=== PATIENT | male | born 1950 | race Caucasian/White ===

== ENCOUNTER → 2017-08-15 | Outpatient (CLI) | payer OTHER ==
[~2017-08-15] MED LIST: 0.92SYRI2 IV; FERR325T18 PO; FISHCAP4 PO; GABA300C5 PO; HEPA100I8 IV; LIDO1CRE31 TOPICAL; MAGN400T2 PO; METO25TA3 PO; MULT400T PO; OYST250T4 PO
== END ==
LOC: CLAB 13:59
PROVIDERS: ATTEND Internal Medicine
DX: E83.52 Hypercalcemia (principal)
CPT/HCPCS: 36415; 84132

== ENCOUNTER 2017-11-05 11:58 | Inpatient (IN) | payer MEDICARE, OTHER ==
[~2017-11-05] VITALS: Ht 191.8 cm; Wt 160.0 kg
[2017-11-05 12:25] VITALS: BP 106/65; PULSE 91; RESP 22; TEMP 98.2; O2SAT 100
[2017-11-05 13:22] LABS: AUTOMATED NEUTROPHIL # 13.5 TH/MM3 (1.8-7.7); BASOPHIL # 0.1 TH/MM3 (0-0.2); BASOPHIL % 0.7 % (0.0-2.0); EOSINOPHIL # 0.4 TH/MM3 (0-0.4); EOSINOPHIL % 2.2 % (0.0-4.0); HEMATOCRIT 25.3 % (39.0-51.0); HEMOGLOBIN 7.9 GM/DL (13.0-17.0); LYMPH % 7.7 % (9.0-44.0); LYMPHOCYTE # 1.3 TH/MM3 (1.0-4.8); MEAN CELL VOLUME 91.6 FL (80.0-100.0); MEAN CORPUSCULAR HEMOGLOBIN 28.7 PG (27.0-34.0); MEAN CORPUSCULAR HGB CONC 31.4 % (32.0-36.0); MEAN PLATELET VOLUME 6.7 FL (7.0-11.0); MONO % 6.7 % (0.0-8.0); MONOCYTE # 1.1 TH/MM3 (0-0.9); NEUT % 82.7 % (16.0-70.0); PLATELET COUNT 427 TH/MM3 (150-450); RED BLOOD COUNT 2.76 MIL/MM3 (4.50-5.90); RED CELL DISTRIBUTION WIDTH 14.6 % (11.6-17.2); WHITE BLOOD COUNT 16.3 TH/MM3 (4.0-11.0)
[2017-11-05 13:30] LABS: BACTERIA, URINE RARE /hpf; BILIRUBIN, URINE NEG (NEG); BLOOD, URINE SMALL (NEG); GLUCOSE,URINE NEG (NEG); HYALINE CAST, URINE 41 /lpf (RARE); KETONE, URINE NEG (NEG); MUCUS URINE FEW /lpf (OCC); NITRITE,URINE NEG (NEG); PH, URINE 5.5 (5.0-8.5); SQUAMOUS EPITHELIAL CELL URINE 1 /hpf (0-5); URINE COLOR YELLOW (YELLW/STRAW); URINE LEUKOCYTE ESTERASE TRACE (NEG)
--- NOTE | 2017-11-05 13:30 | RADRPT ---
EXAM DATE/TIME: 11/05/2017 13:21 [place] COMPARISON: CHEST PA & LAT, June 26, 2016, 22:56. INDICATIONS : Short of breath x 10 days. MEDICAL HISTORY : atrial fibrillation SURGICAL HISTORY : scrotal cancer surgery 2017 ENCOUNTER: Initial ACUITY: 1 week PAIN SCORE: 0/10 LOCATION: Bilateral chest FINDINGS: There is an [id number] in place in the right chest the catheter is in good position. The heart is normal in size. The mediastinal contours are within normal limits. The lungs are clear. The bony structures are grossly intact. There is a convex right rotatory scoliosis. CONCLUSION: 1. No acute cardiopulmonary findings. Jim Frank MD on November 05, 2017 at 13:28 Board Certified Radiologist. This report was verified electronically.
[2017-11-05 13:44] LABS: ALBUMIN 2.7 GM/DL (3.4-5.0); ALKALINE PHOSPHATASE 143 U/L (45-117); ALT (GPT) 25 U/L (12-78); AST (GOT) 19 U/L (15-37); BICARBONATE 16.9 MEQ/L (21.0-32.0); BLOOD UREA NITROGEN 46 MG/DL (7-18); CALCIUM 9.5 MG/DL (8.5-10.1); CHLORIDE 110 MEQ/L (98-107); CREATININE 3.08 MG/DL (0.60-1.30); GLOMERULAR FILTRATION RATE 20 ML/MIN (>89); GLUCOSE,RANDOM 102 MG/DL (74-106); MAGNESIUM 1.3 MG/DL (1.5-2.5); SODIUM (NA) 134 MEQ/L (136-145); TOTAL BILIRUBIN ADULT 0.2 MG/DL (0.2-1.0); TOTAL PROTEIN 9.1 GM/DL (6.4-8.2)
--- NOTE | 2017-11-05 14:40 | PD ---
HPI Chief Complaint: Respiratory Symptoms Time Seen by Provider: 14:16 Travel History International Travel<30 days: No Contact w/Intl Traveler<30days: No Traveled to known affect area: No History of Present Illness HPI The patient is a 67-year-old -[place] male who presents to the emergency department for shortness of breath of 3 weeks duration. The patient notes increasing shortness of breath for the last 3 weeks which is worse with exertion, alleviated at rest. He denies any chest pain or new cough. The patient has a recent history of testicular cancer, underwent removal of both testicles at the [facility] in May 2017. He was then diagnosed with a blood clot in the right lower extremity and was placed on Pradaxa. He also has a history of A. fib with RVR for which he takes Multaq. The patient apparently had recent blood work which revealed an elevated potassium level, however, no follow-up tests were performed. He now complains of increasing shortness of breath and had labs in triage which noted a potassium of 6.9 without any evidence of hemolysis. He denies any PRISCILLA inhibitors ARB use, denies any known history of kidney disorders. He does note mild dehiscence of the surgical wounds in the scrotum which have been evaluated by his physicians at the [facility]. Symptoms are moderate, worse with exertion, and slightly alleviated at rest. He denies any known history of congestive heart failure or cardiomyopathy. PFSH Past Medical History Arthritis: Yes Asthma: Yes (1975) Heart Rhythm Problems: Yes (TACHYCARDIA) Cancer: Yes (SCROTAL SMALL CELL SQUAMOUS) Cardiovascular Problems: Yes Chemotherapy: Yes Diabetes: Yes (Pre DIABETIC) Diminished Hearing: No Endocrine: Yes Genitourinary: No Immune Disorder: No Musculoskeletal: Yes Neurologic: No Psychiatric: No Reproductive: Yes Respiratory: Yes Sleep Apnea: Yes (controlled) Past Surgical History Other Surgery: Yes (WOUND DEBRIDED BUTTOCKS, SWEAT GLANDS REMOVED) Social History Alcohol Use: Yes (RARELY) Tobacco Use: No Substance Use: No Allergies-Medications (Allergen,Severity, Reaction): Coded Allergies: No Known Allergies (Verified Adverse Reaction, Unknown, 11/05/17) Reported Meds & Prescriptions Reported Meds & Active Scripts Active Reported Tylenol (Acetaminophen) 325 Mg Tab 650 Mg PO Q6H PRN [place] (Hydrocodone-Acetaminophen) 7.5-325 mg Tab 1 Tab PO Q4H PRN Heparin Lock Flush For Flush (Heparin Sodium (Porcine) Lock Flush) 500 Unit/5 Ml (100 Unit/Ml) Inj 100 Units IV MONTHLY Normal Saline Flush (Sodium Chloride Flush) 0.9 % Inj 5 Ml IV MONTHLY Fish Oil + D3 (Fish Oil-Cholecalciferol) 1,200-1,000 Mg-Unit Cap 1 Cap PO DAILY Lidopril Topical (Lidocaine-Prilocaine Topical) 2.5-2.5 % Cream 1 Applic TOPICAL 1 HR PRIORACCESSPORT PRN Metoprolol Tartrate 25 Mg Tab 25 Mg PO BID Magnesium Oxide 400 Mg Tab 400 Mg PO TID Gabapentin 300 Mg Cap 300 Mg PO HS Ferrous Sulfate 325 Mg (65 Mg Iron) Tablet 325 Mg PO DAILY Oyster Shell Calcium/Vitamin D (Calcium Carbonate-Cholecalciferol) 250-125 Mg- Unit Tab 2 Tab PO BID Multaq (Dronedarone) 400 Mg Tab 400 Mg PO BID Review of Systems Except as stated in HPI: all other systems reviewed are Neg General / Constitutional: No: Fever HENT: No: Lightheadedness Cardiovascular: Positive: Dyspnea on exertion, No: Chest Pain or Discomfort Respiratory: Positive: Shortness of Breath Gastrointestinal: No: Nausea, Vomiting, Abdominal Pain Genitourinary: No: Decreased Urinary Output Musculoskeletal: Positive: Edema Neurologic: No: Dizziness Physical Exam Narrative GENERAL: Awake, alert, 67-year-old female who appears her stated age and is in no acute respiratory distress. SKIN: Focused skin assessment warm/dry. HEAD: Atraumatic. Normocephalic. EYES: No injection or drainage. ENT: No nasal bleeding or discharge. Mucous membranes pink and moist. NECK: Trachea midline. No JVD. Well-healed scars in the posterior aspect of the neck. CARDIOVASCULAR: Regular rate and rhythm. No murmur appreciated. Heart rate in the 90s. RESPIRATORY: No accessory muscle use. Clear to auscultation. Breath sounds equal bilaterally. GASTROINTESTINAL: Abdomen soft, obese, no rebound tenderness. Genitourinary: Circumcised phallus. Old appearing to his demand at the base of the penis w with small amount of yellow drainage, however, the wound otherwise appears clean. MUSCULOSKELETAL: No obvious deformities. No clubbing. No cyanosis. No edema. NEUROLOGICAL: Awake and alert. No obvious cranial nerve deficits. Motor grossly within normal limits. Normal speech. Nonfocal. PSYCHIATRIC: Appropriate mood and affect; insight and judgment normal. Data Data Last Documented VS Vital Signs Date Time Temp Pulse Resp B/P (MAP) Pulse Ox O2 Delivery O2 Flow Rate FiO2 11/05/17 15:00 18 98 Room Air 11/05/17 15:00 85 128/59 (82) 11/05/17 12:25 98.2 Orders Orders Complete Blood Count With Diff (11/05/17 12:28) Comprehensive Metabolic Panel (11/05/17 12:28) B-Type Natriuretic Peptide (11/05/17 12:28) Magnesium (Mg) (11/05/17 12:28) Electrocardiogram (11/05/17 12:28) Chest, Pa & Lat (11/05/17 12:28) Urinalysis - C+S If Indicated (11/05/17 12:29) Basic Metabolic Panel (Bmp) (11/05/17 14:27) Troponin I (11/05/17 14:50) Creatine Kinase (Cpk) (11/05/17 14:50) Potassium, Serum (K) (11/05/17 19:44) Ecg Monitoring (11/05/17 16:44) Oximetry (11/05/17 16:44) Calcium Gluconate Inj (Calcium Gluconate (11/05/17 16:45) Insulin Human Regular Inj (Novolin R Inj (11/05/17 17:00) Dextrose 50% In Alec (Vial) Inj (D50w (Vi (11/05/17 16:45) Sodium Bicarbonate 8.4% Inj (Sodium Bica (11/05/17 16:45) Sodium Chlor 0.9% 1000 Ml Inj (Ns 1000 M (11/05/17 16:45) Albuterol Neb (Albuterol Neb) (11/05/17 16:45) Admit Order (Ed Use Only) (11/05/17 16:52) Labs Laboratory Tests Test 11/05/17 13:10 11/05/17 13:11 11/05/17 15:55 Urine Color YELLOW Urine Turbidity CLEAR Urine pH 5.5 Urine Specific [place] 1.017 Urine Protein 100 mg/dL Urine Glucose (UA) NEG mg/dL Urine Ketones NEG mg/dL Urine Occult Blood SMALL Urine Nitrite NEG Urine Bilirubin NEG Urine Urobilinogen LESS THAN 2.0 MG/DL Urine Leukocyte Esterase TRACE Urine RBC 6 /hpf Urine WBC 1 /hpf Urine Squamous Epithelial Cells 1 /hpf Urine Bacteria RARE /hpf Urine Hyaline Casts 41 /lpf Urine Mucus FEW /lpf Microscopic Urinalysis Comment CULT NOT INDICATED White Blood Count 16.3 TH/MM3 Red Blood Count 2.76 MIL/MM3 Hemoglobin 7.9 GM/DL Hematocrit 25.3 % Mean Corpuscular Volume 91.6 FL Mean Corpuscular Hemoglobin 28.7 PG Mean Corpuscular Hemoglobin Concent 31.4 % Red Cell Distribution Width 14.6 % Platelet Count 427 TH/MM3 Mean Platelet Volume 6.7 FL Neutrophils (%) (Auto) 82.7 % Lymphocytes (%) (Auto) 7.7 % Monocytes (%) (Auto) 6.7 % Eosinophils (%) (Auto) 2.2 % Basophils (%) (Auto) 0.7 % Neutrophils # (Auto) 13.5 TH/MM3 Lymphocytes # (Auto) 1.3 TH/MM3 Monocytes # (Auto) 1.1 TH/MM3 Eosinophils # (Auto) 0.4 TH/MM3 Basophils # (Auto) 0.1 TH/MM3 CBC Comment DIFF FINAL Differential Comment Blood Urea Nitrogen 46 MG/DL 50 MG/DL Creatinine 3.08 MG/DL 2.89 MG/DL Random Glucose 102 MG/DL 74 MG/DL Total Protein 9.1 GM/DL Albumin 2.7 GM/DL Calcium Level 9.5 MG/DL 9.1 MG/DL Magnesium Level 1.3 MG/DL Alkaline Phosphatase 143 U/L Aspartate Amino Transf (AST/SGOT) 19 U/L Alanine Aminotransferase (ALT/SGPT) 25 U/L Total Bilirubin 0.2 MG/DL Sodium Level 134 MEQ/L 133 MEQ/L Potassium Level 6.9 MEQ/L 7.2 MEQ/L Chloride Level 110 MEQ/L 109 MEQ/L Carbon Dioxide Level 16.9 MEQ/L 16.9 MEQ/L Anion Gap 7 MEQ/L 7 MEQ/L Estimat Glomerular Filtration Rate 20 ML/MIN 22 ML/MIN B-Type Natriuretic Peptide 16 PG/ML Total Creatine Kinase 52 U/L Troponin I LESS THAN 0.02 NG/ML [facility] Medical Decision Making Medical Screen Exam Complete: Yes Emergency Medical Condition: Yes Medical Record Reviewed: Yes Interpretation(s) EKG reveals sinus rhythm with a rate of 91. Questionable peak T waves in V3 and V4. Last Impressions Chest X-Ray 11/05/17 1228 Signed Impressions: Service Date/Time: Sunday, November 05, 2017 13:21 - CONCLUSION: 1. No acute cardiopulmonary findings. Jim Frank MD Laboratory Tests Test 11/05/17 13:10 11/05/17 13:11 11/05/17 15:55 Urine Color YELLOW Urine Turbidity CLEAR Urine pH 5.5 Urine Specific [place] 1.017 Urine Protein 100 mg/dL Urine Glucose (UA) NEG mg/dL Urine Ketones NEG mg/dL Urine Occult Blood SMALL Urine Nitrite NEG Urine Bilirubin NEG Urine Urobilinogen LESS THAN 2.0 MG/DL Urine Leukocyte Esterase TRACE Urine RBC 6 /hpf Urine WBC 1 /hpf Urine Squamous Epithelial Cells 1 /hpf Urine Bacteria RARE /hpf Urine Hyaline Casts 41 /lpf Urine Mucus FEW /lpf Microscopic Urinalysis Comment CULT NOT INDICATED White Blood Count 16.3 TH/MM3 Red Blood Count 2.76 MIL/MM3 Hemoglobin 7.9 GM/DL Hematocrit 25.3 % Mean Corpuscular Volume 91.6 FL Mean Corpuscular Hemoglobin 28.7 PG Mean Corpuscular Hemoglobin Concent 31.4 % Red Cell Distribution Width 14.6 % Platelet Count 427 TH/MM3 Mean Platelet Volume 6.7 FL Neutrophils (%) (Auto) 82.7 % Lymphocytes (%) (Auto) 7.7 % Monocytes (%) (Auto) 6.7 % Eosinophils (%) (Auto) 2.2 % Basophils (%) (Auto) 0.7 % Neutrophils # (Auto) 13.5 TH/MM3 Lymphocytes # (Auto) 1.3 TH/MM3 Monocytes # (Auto) 1.1 TH/MM3 Eosinophils # (Auto) 0.4 TH/MM3 Basophils # (Auto) 0.1 TH/MM3 CBC Comment DIFF FINAL Differential Comment Blood Urea Nitrogen 46 MG/DL Creatinine 3.08 MG/DL Random Glucose 102 MG/DL Total Protein 9.1 GM/DL Albumin 2.7 GM/DL Calcium Level 9.5 MG/DL Magnesium Level 1.3 MG/DL Alkaline Phosphatase 143 U/L Aspartate Amino Transf (AST/SGOT) 19 U/L Alanine Aminotransferase (ALT/SGPT) 25 U/L Total Bilirubin 0.2 MG/DL Sodium Level 134 MEQ/L Potassium Level 6.9 MEQ/L Chloride Level 110 MEQ/L Carbon Dioxide Level 16.9 MEQ/L Anion Gap 7 MEQ/L Estimat Glomerular Filtration Rate 20 ML/MIN B-Type Natriuretic Peptide 16 PG/ML Differential Diagnosis Differential diagnosis includes hyperkalemia, acute kidney failure, acute kidney injury, cardiomyopathy, congestive heart failure, pleural effusion, pneumonia, pulmonary embolism, arrhythmia. Narrative Course Labs were drawn and sent in triage. The patient's potassium is noted to be 6.9 , no evidence of hemolysis. The patient's port was unable to be assessed, therefore, IV was placed,, and repeat BMP was sent to lab. EKG was ordered and interpreted. Chest x-ray was obtained, otherwise unremarkable. The patient is currently anticoagulated with Pradaxa, I doubt pulmonary embolism. However, it appears the patient has hyperkalemia with acute kidney injury, therefore, repeat potassium level was ordered and the patient was monitored on telemetry monitoring. The patient's repeat potassium was 7.2, it appears to be true hyperkalemia with acute kidney injury. The patient was administered insulin, D50, calcium, bicarbonate, and IV fluids. The on-call cardiac nurse specialist was paged for admission. I discussed the patient with Dr. Peñaloza who agrees with admission. The patient may benefit from ultrasound of the kidneys, reevaluation of potassium, and possibly evaluation by nephrology. Critical Care Narrative Aggregate critical care time was 35 minutes. Time to perform other separately billable procedures was not included in the critical care time. My time did not include minutes spent treating any other patients simultaneously or on activities that did not directly contribute to the patient's treatment. The services I provided to this patient were to treat and/or prevent clinically significant deterioration that could result in: Arrhythmia, anoxia, hypoxia, cardiomyopathy, . I provided critical care services requiring my management, as noted below: Chart data review, documentation time, medication orders and management, vital sign assessments/reviewing monitor data, ordering and reviewing lab tests, ordering and interpreting/reviewing x-rays and diagnostic studies, care of the patient and discussion of the patient with the admitting physicians. Physician Communication Physician Communication The on-call cardiac nurse specialist was paged for admission. I discussed the patient with Dr. Peñaloza who agrees with admission. Diagnosis Primary Impression: Hyperkalemia Additional Impressions: Exertional dyspnea Acute kidney injury Admitting Information Admitting Physician Requests: Admit Condition: Serious John Henson MD Nov 05, 2017 14:40
[2017-11-05 15:00] VITALS: BP 128/59; PULSE 85; RESP 16; O2SAT 97
[2017-11-05] MEDS ORDERED: TYLE325T PO (15:36)
[2017-11-05] MEDS ORDERED: HYDR-3288 PO (15:36)
[2017-11-05 16:38] LABS: BICARBONATE 16.9 MEQ/L (21.0-32.0); BLOOD UREA NITROGEN 50 MG/DL (7-18); CALCIUM 9.1 MG/DL (8.5-10.1); CHLORIDE 109 MEQ/L (98-107); CREATININE 2.89 MG/DL (0.60-1.30); GLOMERULAR FILTRATION RATE 22 ML/MIN (>89); GLUCOSE,RANDOM 74 MG/DL (74-106); SODIUM (NA) 133 MEQ/L (136-145)
[2017-11-05] MEDS ORDERED: CALCIUM GLUCONATE 10% 1 GM/10 ML VIAL SLOW IVP ONE (16:45)
[2017-11-05] MEDS ORDERED: RESP: ALBUTEROL 2.5 MG/3 ML NEB (SCH) NEB ONE (16:45)
[2017-11-05] MEDS ORDERED: SODIUM BICARBONATE 8.4% SOLN 50 MEQ/50 ML VIAL SLOW IVP ONE (16:45)
[2017-11-05] MEDS ORDERED: DEXTROSE 50% IN WATER 50 ML VIAL(D50) IV PUSH ONE (16:45)
[2017-11-05] MEDS ORDERED: SODIUM CHLOR 0.9% 1000 ML INJ 1,000 ML IV ONE (16:45)
[2017-11-05 16:46] LABS: TROPONIN I LESS THAN 0.02 NG/ML (0.02-0.05)
[2017-11-05] MEDS ORDERED: INSULIN HUMAN REGULAR 1,000 UNITS/10 ML VIAL IV PUSH ONE (17:00)
[2017-11-05] MEDS ORDERED: SENNOSIDES 8.6 MG TAB PO PRN (17:45)
[2017-11-05] MEDS ORDERED: MISCELLANEOUS NURSING INFORMATION XX SCH (17:45)
[2017-11-05] MEDS ORDERED: ACETAMINOPHEN 325 MG TAB PO PRN (17:45)
[2017-11-05] MEDS ORDERED: RESP: ALBUTEROL 2.5 MG/IPRATROPIUM 0.5 MG NEB (PRN) INH (17:45)
[2017-11-05] MEDS ORDERED: BISACODYL 10 MG SUPP RECTAL PRN (17:45)
[2017-11-05] MEDS ORDERED: CHLORHEXIDINE GLUCONATE 2 % 1 PACK (2 CLOTHS) TOP PRN (17:45)
[2017-11-05] MEDS ORDERED: LACTULOSE SYRUP 20 GM/30 ML CUP PO PRN (17:45)
[2017-11-05] MEDS ORDERED: ONDANSETRON HCL 4 MG/2 ML VIAL IV PUSH PRN (17:45)
[2017-11-05] MEDS ORDERED: MAGNESIUM HYDROXIDE SUSP 30 ML CUP PO PRN (17:45)
[2017-11-05] MEDS ORDERED: SODIUM CHLORIDE 0.9% FLUSH 10 ML FLUSH IV FLUSH PRN (17:45)
[2017-11-05 18:00] VITALS: BP 132/98; PULSE 90; RESP 18; O2SAT 100
[2017-11-05] MEDS ORDERED: GLUCAGON 1 MG/ML VIAL OTHER PRN (18:15)
[2017-11-05] MEDS ORDERED: DEXTROSE 50% IN WATER 50 ML VIAL(D50) IV PUSH PRN (18:15)
[2017-11-05] MEDS ORDERED: SODIUM POLYSTYRENE SULFONATE SUSP 15 GM/60 ML CUP PO ONE (19:00)
--- NOTE | 2017-11-05 19:36 | HHI.HP ---
HPI Service Critical Care Medicine Primary Care Physician No Primary Care Physician Admission Diagnosis Hyperkalemia, acute kidney injury, exertional dyspnea Diagnosis: Travel History International Travel<30 Days: No Contact w/Intl Traveler <30 Da: No Traveled to Known Affected Are: No History of Present Illness History of Present Illness HPI This is a 67-year-old -[place] male that presented to the ED with complaints of dypnea for the last 3 weeks. The patient notes increasing shortness of breath for the last 3 weeks which is worse with exertion, alleviated at rest. He denies any chest pain or new cough. The patient has a recent history of testicular cancer, underwent removal of both testicles at the [facility] in May 2017. He was then diagnosed with a blood clot in the right lower extremity and was placed on Pradaxa. He reported that an IVC filter was placed. He also has a history of A. fib with RVR for which he takes Multaq. The patient apparently had recent blood work which revealed an elevated potassium level, however, no follow-up tests were performed. He now complains of increasing shortness of breath and had labs in triage which noted a potassium of 6.9 without any evidence of hemolysis. He denies any PRISCILLA inhibitors ARB use, denies any known history of kidney disorders. He does note mild dehiscence of the surgical wounds in the scrotum which have been evaluated by his physicians at the [facility]. Symptoms are moderate, worse with exertion, and slightly alleviated at rest. He denies any known history of congestive heart failure or cardiomyopathy.Repeat potassium level was 7.2. Patient received insulin and D50, calcium gluconate, 1 amp of sodium bicarbonate. Critical care medicine was consulted. History PFSH Past Medical History Arthritis: Yes Asthma: Yes (1975) Heart Rhythm Problems: Yes (TACHYCARDIA) Cancer: Yes (SCROTAL SMALL CELL SQUAMOUS) Cardiovascular Problems: Yes Chemotherapy: Yes Diabetes: Yes (Pre DIABETIC) Diminished Hearing: No Endocrine: Yes Genitourinary: No Immune Disorder: No Musculoskeletal: Yes Neurologic: No Psychiatric: No Reproductive: Yes Respiratory: Yes Sleep Apnea: Yes (controlled) Past Surgical History Other Surgery: Yes (WOUND DEBRIDED BUTTOCKS, SWEAT GLANDS REMOVED) Social History Alcohol Use: Yes (RARELY) Tobacco Use: No Substance Use: No Allergies-Medications Allergies-Medications (Allergen,Severity, Reaction): Coded Allergies: No Known Allergies (Verified Adverse Reaction, Unknown, 11/05/17) Reported Meds & Prescriptions Reported Meds & Active Scripts Active Reported Tylenol (Acetaminophen) 325 Mg Tab 650 Mg PO Q6H PRN [place] (Hydrocodone-Acetaminophen) 7.5-325 mg Tab 1 Tab PO Q4H PRN Heparin Lock Flush For Flush (Heparin Sodium (Porcine) Lock Flush) 500 Unit/5 Ml (100 Unit/Ml) Inj 100 Units IV MONTHLY Normal Saline Flush (Sodium Chloride Flush) 0.9 % Inj 5 Ml IV MONTHLY Fish Oil + D3 (Fish Oil-Cholecalciferol) 1,200-1,000 Mg-Unit Cap 1 Cap PO DAILY Lidopril Topical (Lidocaine-Prilocaine Topical) 2.5-2.5 % Cream 1 Applic TOPICAL 1 HR PRIORACCESSPORT PRN Metoprolol Tartrate 25 Mg Tab 25 Mg PO BID Magnesium Oxide 400 Mg Tab 400 Mg PO TID Gabapentin 300 Mg Cap 300 Mg PO HS Ferrous Sulfate 325 Mg (65 Mg Iron) Tablet 325 Mg PO DAILY Oyster Shell Calcium/Vitamin D (Calcium Carbonate-Cholecalciferol) 250-125 Mg- Unit Tab 2 Tab PO BID Multaq (Dronedarone) 400 Mg Tab 400 Mg PO BID ROS Review of Systems Except as stated in HPI: all other systems reviewed are Neg General / Constitutional: No: Fever HEENT: No: Lightheadedness Cardiovascular: Positive: Dyspnea on exertion, No: Chest Pain or Discomfort Respiratory: Positive: Shortness of Breath Gastrointestinal: No: Nausea, Vomiting, Abdominal Pain Genitourinary: No: Decreased Urinary Output Musculoskeletal: Positive: Edema Neurologic: No: Dizziness Physical Exam Vital Signs Vital Signs Date Time Temp Pulse Resp B/P (MAP) Pulse Ox O2 Delivery O2 Flow Rate FiO2 11/05/17 18:39 11/05/17 18:00 90 18 132/98 (109) 100 Room Air 11/05/17 15:00 18 98 Room Air 11/05/17 15:00 85 16 128/59 (82) 97 Room Air 11/05/17 12:25 98.2 91 22 106/65 (79) 100 Physical Exam GENERAL: This is a morbidly obese [place] male lying semirecumbent in stretcher in no apparent distress SKIN: Warm and dry. HEAD: Atraumatic. Normocephalic. EYES: Pupils equal and round. No scleral icterus. No injection or drainage. ENT: No nasal bleeding or discharge. Mucous membranes pink and moist. Uvula midline NECK: Trachea midline. No JVD. CARDIOVASCULAR: Normal rate, regular rhythm. RESPIRATORY: No accessory muscle use. Clear to auscultation. Breath sounds equal bilaterally. GASTROINTESTINAL: Abdomen soft, non-tender, nondistended. No guarding. MUSCULOSKELETAL: Extremities without clubbing, cyanosis, or edema. No obvious deformities. Venous stasis noted bilateral lower extremities, right lower extremity noted larger than left lower extremity NEUROLOGICAL: Awake and alert. RASS 0. No gross focal/sensory deficits. Follows commands in all 4 extremities. Laboratory Laboratory Tests Test 11/05/17 13:10 11/05/17 13:11 11/05/17 15:55 Urine Color YELLOW Urine Turbidity CLEAR Urine pH 5.5 Urine Specific [place] 1.017 Urine Protein 100 Urine Glucose (UA) NEG Urine Ketones NEG Urine Occult Blood SMALL Urine Nitrite NEG Urine Bilirubin NEG Urine Urobilinogen LESS THAN 2.0 Urine Leukocyte Esterase TRACE Urine RBC 6 Urine WBC 1 Urine Squamous Epithelial Cells 1 Urine Bacteria RARE Urine Hyaline Casts 41 Urine Mucus FEW Microscopic Urinalysis Comment CULT NOT INDICATED White Blood Count 16.3 Red Blood Count 2.76 Hemoglobin 7.9 Hematocrit 25.3 Mean Corpuscular Volume 91.6 Mean Corpuscular Hemoglobin 28.7 Mean Corpuscular Hemoglobin Concent 31.4 Red Cell Distribution Width 14.6 Platelet Count 427 Mean Platelet Volume 6.7 Neutrophils (%) (Auto) 82.7 Lymphocytes (%) (Auto) 7.7 Monocytes (%) (Auto) 6.7 Eosinophils (%) (Auto) 2.2 Basophils (%) (Auto) 0.7 Neutrophils # (Auto) 13.5 Lymphocytes # (Auto) 1.3 Monocytes # (Auto) 1.1 Eosinophils # (Auto) 0.4 Basophils # (Auto) 0.1 CBC Comment DIFF FINAL Differential Comment Blood Urea Nitrogen 46 50 Creatinine 3.08 2.89 Random Glucose 102 74 Total Protein 9.1 Albumin 2.7 Calcium Level 9.5 9.1 Magnesium Level 1.3 Alkaline Phosphatase 143 Aspartate Amino Transf (AST/SGOT) 19 Alanine Aminotransferase (ALT/SGPT) 25 Total Bilirubin 0.2 Sodium Level 134 133 Potassium Level 6.9 7.2 Chloride Level 110 109 Carbon Dioxide Level 16.9 16.9 Anion Gap 7 7 Estimat Glomerular Filtration Rate 20 22 B-Type Natriuretic Peptide 16 Total Creatine Kinase 52 Troponin I LESS THAN 0.02 Result Diagram: 11/05/17 1311 11/05/17 1555 Imaging Last Impressions Chest X-Ray 11/05/17 1228 Signed Impressions: Service Date/Time: Sunday, November 05, 2017 13:21 - CONCLUSION: 1. No acute cardiopulmonary findings. Jim Frank MD Septic Shock Reassessment Septic shock perfusion: reassessment completed Caprini VTE Risk Assessment Caprini VTE Risk Assessment: Mod/High Risk (score >= 2) Caprini Risk Assessment Model Point Value = 1 Point Value = 2 Point Value = 3 Point Value = 5 Age 41-60 Minor surgery BMI > 25 kg/m2 Swollen legs Varicose veins or History of unexplained or recurrent spontaneous Oral contraceptives or hormone replacement Sepsis (< 1 month) Serious lung disease, including pneumonia (< 1 month) Abnormal pulmonary function Acute myocardial infarction Congestive heart failure (< 1 month) History of inflammatory bowel disease Medical patient at bed rest Age 61-74 Arthroscopic surgery Major open surgery (> 45 min) Laparoscopic surgery (> 45 min) Malignancy Confined to bed (> 72 hours) Immobilizing plaster cast Central venous access Age >= 75 History of VTE Family history of VTE Factor V Leiden Prothrombin [id number] Lupus anticoagulant Anticardiolipin antibodies Elevated serum homocysteine Heparin-induced thrombocytopenia Other congenital or acquired thrombophilia Stroke (< 1 month) Elective arthroplasty Hip, pelvis, or leg fracture Acute spinal cord injury (< 1 month) Prophylaxis Regimen Total Risk Factor Score Risk Level Prophylaxis Regimen 0-1 Low Early ambulation 2 Moderate Order ONE of the following: *Sequential Compression Device (SCD) *Heparin 5000 units SQ BID 3-4 Higher Order ONE of the following medications: *Heparin 5000 units SQ TID *Enoxaparin/Lovenox 40 mg SQ daily (WT < 150 kg, CrCl > 30 mL/min) *Enoxaparin/Lovenox 30 mg SQ daily (WT < 150 kg, CrCl > 10-29 mL/min) *Enoxaparin/Lovenox 30 mg SQ BID (WT < 150 kg, CrCl > 30 mL/min) AND/OR *Sequential Compression Device (SCD) 5 or more Highest Order ONE of the following medications: *Heparin 5000 units SQ TID (Preferred with Epidurals) *Enoxaparin/Lovenox 40 mg SQ daily (WT < 150 kg, CrCl > 30 mL/min) *Enoxaparin/Lovenox 30 mg SQ daily (WT < 150 kg, CrCl > 10-29 mL/min) *Enoxaparin/Lovenox 30 mg SQ BID (WT < 150 kg, CrCl > 30 mL/min) AND *Sequential Compression Device (SCD) Assessment and Plan Assessment and Plan Assessment This a 67-year-old morbidly obese male presenting with hyperkalemia, with notably peaked T waves on EKG. 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 Admit to ICU. Plan by systems: Neurologic: Chronic pain Neuropathy Neurochecks per ICU protocol Acetaminophen 650 mg every 6 hours for elevated temperature Continue home medication [place] 7-325 mg every 4 hours when necessary for pain 7- 10 Continue home medication Gabapentin 300 mg daily at bedtime Obtain cortisol, aldosterone, and thyroid levels-concern for adrenal insufficiency Respiratory: History of PAULINA Maintain O2 sat greater than 92%. Patient currently on room air O2 saturation 99% 11/05-chest x-ray-lungs clear, no acute disease process Patient currently on Pradaxa 150 mg twice a day, will continue. History of DVT March or April 2017, after his scrotal surgery, and patient states placement of IVC filter Duo nebs every 4 hours when necessary for wheezing Chest x-rays and ABGs when clinically indicated Patient states he was diagnosed with PAULINA but has never used CPAP at home Cardiovascular: Chronic A. fib Continue home medication Multaq 100 mg BID, metoprolol 25 mg twice a day Obtain echo Telemetry sinus rhythm-notable peaked T waves Renal: Placed condom catheter, bladder scan every 4 hours if no urine output or greater than 400 cc straight cath -- Strict I/Os FEN/GI: Electrolyte derangement-hypokalemia and hyponatremia Metabolic acidosis-with normal anion gap Iron deficiency BORA Hyperkalemia-treated in ED with insulin and D50, calcium gluconate, albuterol, and 1 amp of sodium bicarbonate 50 mEq Begin sodium bicarbonate infusion 75 cc/hour Kayexalate PO x 1 dose now Nephrology consult-creatinine 2.89 Obtain serial BMP Obtain renin level Obtain hemoglobin A1c Continue ferrous sulfate 325 mg/day -home medication Zofran for nausea Heme/ID: Leukocytosis Obtain serial lactate levels Monitor CBC Obtain blood cultures Obtain urine culture if indicated Ck scrotal area- previous dehiscence area from scrotal surgery Endocrine: Diabetes mellitus Glucose monitoring per ICU protocol Obtain thyroid panel, aldosterone -- SSI Prophylaxis: GI Prophylaxis Famotidine DVT Prophylaxis -- SCDs Pradaxa 150 mg BID Lines: Peripheral IVs. Right chest [id number] Dispo: my billing statement This patient remains critically ill with one or more organ systems which are or may become a threat to life. I have spent in excess of 60 minutes discontinuously in the care and management of this patient. This time is exclusive of procedures, and includes, but is not limited to, evaluation of the patient, review of the medical record, discussions with family, consultants, nursing staff, or respiratory therapy, and documentation in the medical record. Code Status Full Discussed Condition With Dr. Henson, Patient and ED RN at bedside Cyndi Peñaloza MD Nov 05, 2017 19:36
[2017-11-05 20:00] VITALS: BP 162/76; PULSE 92; RESP 27; TEMP 97.9; O2SAT 100
[2017-11-05] MEDS: INSULIN ASPART SUPPLEMENTAL SCALE SQ SCH (21:00)
[2017-11-05] MEDS: DOCUSATE SODIUM 50 MG/SENNA 8.6 MG TAB PO SCH (21:00)
[2017-11-05] MEDS: SODIUM BICARBONATE 8.4% INJ 150 MEQ in DEXTROSE 5% IN WATE 1000ML INJ 850 ML IV SCH ×2 (21:24)
[2017-11-05] MEDS: METOPROLOL TARTRATE 25 MG TAB PO SCH (21:25)
[2017-11-05] MEDS: FAMOTIDINE 20 MG TAB PO SCH (21:25)
[2017-11-05] MEDS: GABAPENTIN 300 MG CAP PO SCH (21:25)
[2017-11-05] MEDS: DRONEDARONE 400 MG TAB PO SCH (21:25)
[2017-11-05] MEDS: SODIUM CHLORIDE 0.9% FLUSH 10 ML FLUSH IV FLUSH SCH (21:25)
[2017-11-05 22:00] VITALS: PULSE 94
[2017-11-06] VITALS (14 sets, daily range): BP systolic 113–171; BP diastolic 56–77; PULSE 74–94; RESP 11–25; TEMP 97.5–98.5; O2SAT 17–100
[2017-11-06] MEDS: CHLORHEXIDINE GLUCONATE 2 % 1 PACK (2 CLOTHS) TOP SCH (03:30)
--- NOTE | 2017-11-06 04:46 | RADRPT ---
EXAM DATE/TIME: 11/06/2017 03:55 [place] COMPARISON: CHEST PA & LAT, November 05, 2017, 13:21. INDICATIONS : Shortness of breath, possible pulmonary disease. MEDICAL HISTORY : Carcinoma, testicular. A-Fib SURGICAL HISTORY : scrotal cancer surgery 2017 ENCOUNTER: Subsequent ACUITY: 2 days PAIN SCORE: 0/10 LOCATION: Bilateral chest FINDINGS: Rotated portable AP view of the chest demonstrates a normal-sized cardiac silhouette. Right IJ line d istal tip is in the SVC. No pleural effusion, airspace consolidation, or pneumothorax is identified. The bones and soft tissues demonstrate no acute finding. CONCLUSION: No acute cardiopulmonary abnormality is identified. Zhou Renteria MD on November 06, 2017 at 4:44 Board Certified Radiologist. This report was verified electronically.
[2017-11-06 05:57] LABS: AUTOMATED NEUTROPHIL # 6.5 TH/MM3 (1.8-7.7); BASOPHIL # 0.1 TH/MM3 (0-0.2); BASOPHIL % 0.8 % (0.0-2.0); EOSINOPHIL # 0.3 TH/MM3 (0-0.4); EOSINOPHIL % 3.3 % (0.0-4.0); LYMPH % 6.4 % (9.0-44.0); LYMPHOCYTE # 0.5 TH/MM3 (1.0-4.8); MEAN CELL VOLUME 89.2 FL (80.0-100.0); MEAN CORPUSCULAR HEMOGLOBIN 29.8 PG (27.0-34.0); MEAN CORPUSCULAR HGB CONC 33.4 % (32.0-36.0); MEAN PLATELET VOLUME 6.6 FL (7.0-11.0); MONO % 8.7 % (0.0-8.0); MONOCYTE # 0.7 TH/MM3 (0-0.9); NEUT % 80.8 % (16.0-70.0); PLATELET COUNT 282 TH/MM3 (150-450); RED BLOOD COUNT 2.26 MIL/MM3 (4.50-5.90); RED CELL DISTRIBUTION WIDTH 14.5 % (11.6-17.2); WHITE BLOOD COUNT 8.1 TH/MM3 (4.0-11.0)
[2017-11-06 06:06] LABS: INTERNATIONAL NORMALIZED RATIO 1.5 RATIO; PROTHROMBIN TIME - PATIENT 15.5 SEC (9.8-11.6)
[2017-11-06 06:12] LABS: HEMATOCRIT 20.2 % (39.0-51.0); HEMOGLOBIN 6.8 GM/DL (13.0-17.0)
[2017-11-06 06:31] LABS: ALBUMIN 2.4 GM/DL (3.4-5.0); ALKALINE PHOSPHATASE 114 U/L (45-117); ALT (GPT) 21 U/L (12-78); AST (GOT) 15 U/L (15-37); BICARBONATE 19.3 MEQ/L (21.0-32.0); BLOOD UREA NITROGEN 41 MG/DL (7-18); CHLORIDE 110 MEQ/L (98-107); CREATININE 2.27 MG/DL (0.60-1.30); GLOMERULAR FILTRATION RATE 29 ML/MIN (>89); GLUCOSE,RANDOM 90 MG/DL (74-106); MAGNESIUM 1.4 MG/DL (1.5-2.5); PHOSPHORUS 3.6 MG/DL (2.5-4.9); SODIUM (NA) 138 MEQ/L (136-145); TOTAL BILIRUBIN ADULT 0.2 MG/DL (0.2-1.0); TOTAL PROTEIN 7.9 GM/DL (6.4-8.2)
[2017-11-06 06:40] LABS: FERRITIN 2108 NG/ML (26-388); FREE T3 1.66 PG/ML (2.18-3.98); FREE T4 1.09 NG/DL (0.76-1.46)
[2017-11-06 06:44] LABS: BICARBONATE 19.5 MEQ/L (21.0-32.0); BLOOD UREA NITROGEN 45 MG/DL (7-18); CALCIUM 8.7 MG/DL (8.5-10.1); CHLORIDE 111 MEQ/L (98-107); CREATININE 2.34 MG/DL (0.60-1.30); GLOMERULAR FILTRATION RATE 28 ML/MIN (>89); GLUCOSE,RANDOM 82 MG/DL (74-106); SODIUM (NA) 139 MEQ/L (136-145)
[2017-11-06] MEDS: INSULIN ASPART SUPPLEMENTAL SCALE SQ SCH ×4 (08:00→21:00)
[2017-11-06] MEDS: DOCUSATE SODIUM 50 MG/SENNA 8.6 MG TAB PO SCH ×2 (09:00→21:00)
[2017-11-06] MEDS: DRONEDARONE 400 MG TAB PO SCH ×2 (09:01→21:19)
[2017-11-06] MEDS: METOPROLOL TARTRATE 25 MG TAB PO SCH ×2 (09:01→21:19)
[2017-11-06] MEDS: SODIUM CHLORIDE 0.9% FLUSH 10 ML FLUSH IV FLUSH SCH ×2 (09:01→21:21)
[2017-11-06] MEDS: FERROUS SULFATE 325 MG (65 MG ELEMENTAL IRON) TAB PO SCH (09:01)
[2017-11-06] MEDS: DABIGATRAN ETEXILATE 150 MG CAP PO SCH ×2 (10:08→21:00)
[2017-11-06] MEDS: SODIUM BICARBONATE 8.4% INJ 150 MEQ in DEXTROSE 5% IN WATE 1000ML INJ 850 ML IV SCH ×4 (10:08→23:12)
[2017-11-06] MEDS: MAGNESIUM SULFATE 1 GM PREMIX 100 ML IV SCH ×2 (10:21→11:27)
--- NOTE | 2017-11-06 12:02 | ECHRPT ---
Indication: SOB CONCLUSIONS Mildly dilated left ventricle. Wall thickness is measured at the upper limits of normal. The left ventricular systolic function is normal with an estimated ejection fraction in the range of 60-65%. Mitral annular calcification is present. BP: 131 / 69 HR: 94 Rhythm: Technical Quality:Technically difficult study FINDINGS LEFT VENTRICLE Mildly dilated left ventricle. Wall thickness is measured at the upper limits of normal. The left ventricular systolic function is normal with an estimated ejection fraction in the range of 60-65%. RIGHT VENTRICLE Normal right ventricular size and systolic function. LEFT ATRIUM The left atrial size is normal. RIGHT ATRIUM The right atrial size is normal. ATRIAL SEPTUM Normal atrial septal thickness without atrial level shunting by limited color doppler interrogation. AORTA The aortic root and proximal ascending aorta are normal in size on limited imaging. MITRAL VALVE Mitral annular calcification is present. AORTIC VALVE Trileaflet aortic valve. No aortic valve stenosis or regurgitation. TRICUSPID VALVE Structurally normal tricuspid valve. No tricuspid valve stenosis or regurgitation. PULMONARY VALVE The pulmonary valve is not well visualized. VESSELS The inferior vena cava is normal in size. PERICARDIUM No pericardial effusion. Cleve Rader MD, FACC (Electronically Signed) Final Date:06 November 2017 12:01
--- NOTE | 2017-11-06 12:09 | HHI.CCPN ---
Subjective Remarks/Hospital Course This is a 67-year-old -Azerbaij[place] male that presented to the ED with complaints of dypnea for the last 3 weeks. The patient notes increasing shortness of breath for the last 3 weeks which is worse with exertion, alleviated at rest. He denies any chest pain or new cough. The patient has a recent history of testicular cancer, underwent removal of both testicles at the [facility] in May 2017. He was then diagnosed with a blood clot in the right lower extremity and was placed on Pradaxa. He reported that an IVC filter was placed. He also has a history of A. fib with RVR for which he takes Multaq. The patient apparently had recent blood work which revealed an elevated potassium level, however, no follow-up tests were performed. He now complains of increasing shortness of breath and had labs in triage which noted a potassium of 6.9 without any evidence of hemolysis. He denies any PRISCILLA inhibitors ARB use, denies any known history of kidney disorders. He does note mild dehiscence of the surgical wounds in the scrotum which have been evaluated by his physicians at the [facility]. Symptoms are moderate, worse with exertion, and slightly alleviated at rest. He denies any known history of congestive heart failure or cardiomyopathy.Repeat potassium level was 7.2. Patient received insulin and D50, calcium gluconate, 1 amp of sodium bicarbonate. Critical care medicine was consulted. Subjective: 11/06: No acute events overnight. Patient continues on sodium bicarbonate infusion , potassium level 5.7 . Hemoglobin noted 6.8 , be transfused 1 unit of packed red blood cells .Scrotal wound now draining, appears purulent.WBC down trended. Blood cultures 2, wound culture obtained. Wound care consult ordered. Objective Vital Signs Date Time Temp Pulse Resp B/P (MAP) Pulse Ox O2 Delivery O2 Flow Rate FiO2 11/06/17 10:08 17 11/06/17 10:00 77 11/06/17 08:00 98.2 171/77 (108) 100 11/05/17 18:00 Room Air Intake and Output 11/06/17 11/06/17 11/07/17 08:00 16:00 00:00 Intake Total 675 ml Output Total 900 ml Balance -225 ml Result Diagram: 11/06/17 0541 11/06/17 0541 Imaging Last Impressions Chest X-Ray 11/06/17 0000 Signed Impressions: Service Date/Time: October 03:55 - CONCLUSION: No acute cardiopulmonary abnormality is identified. Zhou Renteria MD Last Impressions Chest X-Ray 11/05/17 1228 Signed Impressions: Service Date/Time: Sunday, November 05, 2017 13:21 - CONCLUSION: 1. No acute cardiopulmonary findings. Jim Frank MD Objective Remarks GENERAL: This is a morbidly obese [place] male lying semirecumbent in stretcher in no apparent distress SKIN: Warm and dry. HEAD: Atraumatic. Normocephalic. EYES: Pupils equal and round. No scleral icterus. No injection or drainage. ENT: No nasal bleeding or discharge. Mucous membranes pink and moist. Uvula midline NECK: Trachea midline. No JVD. CARDIOVASCULAR: Normal rate, regular rhythm. RESPIRATORY: No accessory muscle use. Clear to auscultation. Breath sounds equal bilaterally. GASTROINTESTINAL: Abdomen soft, non-tender, nondistended. No guarding. MUSCULOSKELETAL: Extremities without clubbing, cyanosis, or edema. No obvious deformities. Venous stasis noted bilateral lower extremities, right lower extremity noted larger than left lower extremity.Purulent appearing drainage from scrotal surgical site. NEUROLOGICAL: Awake and alert. RASS 0. No gross focal/sensory deficits. Follows commands in all 4 extremities. A/P Assessment and Plan Assessment Plan by systems: Neurologic: Chronic pain Neuropathy Neurochecks per ICU protocol Acetaminophen 650 mg every 6 hours for elevated temperature Continue home medication [place] 7-325 mg every 4 hours when necessary for pain 7- 10 Continue home medication Gabapentin 300 mg daily at bedtime F/U cortisol, aldosterone, and thyroid levels-pending Respiratory: History of PAULINA Maintain O2 sat greater than 92%. Patient currently on room air O2 saturation 99% 11/06-chest x-ray-lungs clear, no acute disease process Patient currently on Pradaxa 150 mg twice a day, will continue. History of DVT March or April 2017, after his scrotal surgery, and patient states placement of IVC filter Duo nebs every 4 hours when necessary for wheezing Chest x-rays and ABGs when clinically indicated Patient states he was diagnosed with PAULINA but has never used CPAP at home Cardiovascular: Chronic A. fib Continue home medication Multaq 100 mg BID, metoprolol 25 mg twice a day Obtain echo Renal Bladder scan every 4 hours if no urine output or greater than 400 cc straight cath -- Strict I/Os FEN/GI: Electrolyte derangement-hypokalemia and hyponatremia Metabolic acidosis-with normal anion gap Iron deficiency BORA Hyperkalemia-treated in ED with insulin and D50, calcium gluconate, albuterol, and 1 amp of sodium bicarbonate 50 mEq Begin sodium bicarbonate infusion 75 cc/hour Kayexalate PO x 1 dose now Nephrology consult-creatinine 2.89 Monitor BMP F/U renin level-pending F/U hemoglobin [id number] Continue ferrous sulfate 325 mg/day -home medication Zofran for nausea Heme/ID: Leukocytosis-resolved Monitor CBC Lactate -0.6 F/U blood cultures Obtain urine culture if indicated Ck scrotal area- previous dehiscence area from scrotal surgery Endocrine: Diabetes mellitus Glucose monitoring per ICU protocol F/U thyroid panel, aldosterone -- SSI Prophylaxis: GI Prophylaxis Famotidine DVT Prophylaxis -- SCDs Pradaxa 150 mg BID Lines: Peripheral IVs. Right chest [id number] Dispo: Level 3 Physician Cyndi Vines MD Nov 06, 2017 12:09
[2017-11-06] MEDS: ACETAMINOPHEN/HYDROcodone 325 MG/7.5 MG TAB PO PRN (13:13)
--- NOTE | 2017-11-06 14:35 | PD.WCN.NOT ---
Wound Consult Description: Received consult from Doctor Cyndi Peñaloza for scrotal wound management Communicated with: Doctor Cyndi Peñaloza and Val Alfonso [facility] Recommendation: Please cleanse wound to scrotal and paula penile areas with normal saline and pat dry. Apply topical Lidocaine 2% 2 mm thickness to wound beds and leave in place on wound for 5 minutes before loosely packing wounds with Maxorb Extra AG dressing, and Apply ultra sorb moisture management pads to groin and creases bilaterally. Change dressings and ultra sorb pads daily Additional Information: Patient seen on 5th floor [facility] [place] [place] for evaluation of scrotal wound management around 1400.Patient seen with Val SANCHEZ and blurb writer. Removed ABD pads in place to reveal wounds to Paula Penile area and Scrotal dehisced surgical wound.Both wounds present with 100% red granulation tissue. Wounds are draining moderate sero-sanguinous drainage without odor. Cleansed wounds with normal saline. Wound to paula penile area measures ~5cm x ~6cm x ~3cm. Wound to scrotal area measures ~4cm x ~0.7cm x ~1cm . Periwound presents with small areas of scattered partial thickness skin loss. Maxorb AG was loosely packed to wound beds. Patient is noted with denuded skin with small areas of partial thickness skin loss in bilateral groin areas.Ultra sorb moisture wicking pads were placed in groin areas to absorb moisture from wounds and manage moisture in skin folds.Recommendations for wound care are noted above. Please vocera wound care nurse for wound deterioration. Sherrill Greco [facility] Nov 06, 2017 14:34
[2017-11-06 17:01] LABS: HEMOGLOBIN A1C 5.6 % (4.3-6.0)
--- NOTE | 2017-11-06 17:41 | PD.CONS ---
HPI Service Nephrology Consult Requested By Dr. 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 fib, asthma, and prediabetes who presented to the ED on 11/05 with complaints of dyspnea x3 weeks. Does report an [facility] visit [facility] at the end of Oct and was prescribed Tessalon Perles as well as Bactrim DS for groin ulceration that he completed just 2 days before. AT admission, he was found to be profoundly anemic with a severely elevated potassium of 7.2 that has improved with Kionex, D50, and insulin to 5.7. He states he has had several admissions and ED visits to [facility] in the past 6 months for hyperkalemia. Does not follow with PCP regularly. Denies any recent NSAID use, but does report daily Ibuprofen prior to his surgery in May 2017. Does not take potassium supplementation nor any ACEi or ARB. Admitting SCr at 3.08 that has improved to 2.27 at consult. K+ at 5.7, CO2 at 16 on admission improved to 19. Hgb dropped to 6.8 today from 7.9 on admission. Echo shows normal EF of 60-65% [facility] labs from 2016 show baseline SCr of 1.2-1.3. March 2017 his SCr was 2.58 and Aug 2017 was 1.7. K+ noted to be normal in 2016, was 5.4-5.6 in March 2017 and 6.09 Aug 2017 (this was outpatient lab and uncertain if he was aware of this or if addressed). (Norma Mc) Review of Systems Cardiovascular: COMPLAINS OF: Dyspnea on Exertion Gastrointestinal: COMPLAINS OF: Diarrhea Genitourinary: COMPLAINS OF: Nocturia (Norma Mc) Past Family Social History Allergies: Coded Allergies: No Known Allergies (Verified Adverse Reaction, Unknown, 11/05/17) Past Medical History A fib DVT Scrotal SCC Hyperkalemia Asthma ?CKD Anemia Past Surgical History Bilat orchiectomy May 2017 at [facility] IVC filter placement Reported Medications Tylenol (Acetaminophen) 325 Mg Tab 650 Mg PO Q6H PRN [place] (Hydrocodone-Acetaminophen) 7.5-325 mg Tab 1 Tab PO Q4H PRN Heparin Lock Flush For Flush (Heparin Sodium (Porcine) Lock Flush) 500 Unit/5 Ml (100 Unit/Ml) Inj 100 Units IV MONTHLY Normal Saline Flush (Sodium Chloride Flush) 0.9 % Inj 5 Ml IV MONTHLY Fish Oil + D3 (Fish Oil-Cholecalciferol) 1,200-1,000 Mg-Unit Cap 1 Cap PO DAILY Lidopril Topical (Lidocaine-Prilocaine Topical) 2.5-2.5 % Cream 1 Applic TOPICAL 1 HR PRIORACCESSPORT PRN Metoprolol Tartrate 25 Mg Tab 25 Mg PO BID Magnesium Oxide 400 Mg Tab 400 Mg PO TID Gabapentin 300 Mg Cap 300 Mg PO HS Ferrous Sulfate 325 Mg (65 Mg Iron) Tablet 325 Mg PO DAILY Oyster Shell Calcium/Vitamin D (Calcium Carbonate-Cholecalciferol) 250-125 Mg- Unit Tab 2 Tab PO BID Multaq (Dronedarone) 400 Mg Tab 400 Mg PO BID Active Ordered Medications Current Medications Medications (Trade) Dose Ordered Sig/Gasper Route Start Time Stop Time Status Last Admin (NS Flush) 2 ml UNSCH PRN IV FLUSH 11/05/17 17:45 (NS Flush) 2 ml BID IV FLUSH 11/05/17 21:00 11/06/17 09:01 (Tylenol) 650 mg Q6H PRN PO 11/05/17 17:45 11/06/17 09:01 (Pepcid) 20 mg HS PO 11/05/17 21:00 11/05/17 21:25 (Zofran Inj) 4 mg Q6H PRN IV PUSH 11/05/17 17:45 (Duoneb Neb) 1 ampule Q4HR NEB PRN INH 11/05/17 17:45 Miscellaneous Information 1 Q361D XX 11/05/17 17:45 11/05/17 17:45 (Chlorhexidine 2% Cloth) 3 pack Taper DAILY@04 TOP 11/06/17 04:00 11/02/18 03:59 11/06/17 03:30 (Chlorhexidine 2% Cloth) 3 pack UNSCH PRN TOP 11/05/17 17:45 (Paula-Colace) 1 tab BID PO 11/05/17 21:00 (Milk Of Magnesia Liq) 30 ml Q12H PRN PO 11/05/17 17:45 (Senokot) 17.2 mg Q12H PRN PO 11/05/17 17:45 (Dulcolax Supp) 10 mg DAILY PRN RECTAL 11/05/17 17:45 (Lactulose Liq) 30 ml DAILY PRN PO 11/05/17 17:45 (Multaq) 400 mg BID PO 11/05/17 21:00 11/06/17 09:01 (Neurontin) 300 mg HS PO 11/05/17 21:00 11/05/17 21:25 (Lopressor) 25 mg BID PO 11/05/17 21:00 11/06/17 09:01 (D50w (Vial) Inj) 50 ml UNSCH PRN IV PUSH 11/05/17 18:15 (Glucagon Inj) 1 mg UNSCH PRN OTHER 11/05/17 18:15 (NovoLOG SUPPLEMENTAL SCALE) 1 ACHS SLIDING SCALE SQ 11/05/17 21:00 ([place] 7.5-325 Mg) 1 tab Q4H PRN PO 11/05/17 18:15 11/06/17 13:13 Sodium Bicarbonate 150 meq/Dextrose 1,000 ml @ 75 mls/hr [id number] IV 11/05/17 20:00 11/06/17 10:08 (Ferrous Sulfate) 325 mg DAILY PO 11/06/17 09:00 11/06/17 09:01 (Pradaxa) 150 mg BID PO 11/06/17 10:00 11/06/17 10:08 Family History NC Social History Rare EtOH use No tobacco use No recent illicit drug use hx (Norma Mc) Physical Exam Vital Signs Vital Signs Date Time Temp Pulse Resp B/P (MAP) Pulse Ox O2 Delivery O2 Flow Rate FiO2 11/06/17 16:00 78 11/06/17 14:52 24 11/06/17 14:00 79 11/06/17 13:08 98.3 90 24 115/57 100 11/06/17 12:52 97.5 80 24 115/56 100 11/06/17 12:00 98.3 74 18 115/56 (75) 100 11/06/17 12:00 74 11/06/17 10:08 17 11/06/17 10:00 77 11/06/17 08:00 82 11/06/17 08:00 98.2 82 25 171/77 (108) 100 11/06/17 06:00 84 11/06/17 04:00 94 11/06/17 04:00 98.5 94 21 131/69 (89) 100 11/06/17 02:00 80 11/06/17 00:00 80 11/06/17 00:00 97.9 80 14 139/77 (97) 17 11/05/17 22:00 94 11/05/17 20:00 97.9 92 27 162/76 (104) 100 11/05/17 20:00 92 11/05/17 18:39 11/05/17 18:00 90 18 132/98 (109) 100 Room Air Physical Exam GENERAL: Pt laying in bed in NAD. SKIN: Warm and dry. HEAD: Atraumatic. Normocephalic. EYES: Pupils equal and round. No scleral icterus. No injection or drainage. ENT: No nasal bleeding or discharge. Mucous membranes pink and moist. NECK: Trachea midline. No JVD. CARDIOVASCULAR: Regular rate and rhythm. RESPIRATORY: No accessory muscle use. Clear to auscultation. Breath sounds equal bilaterally. GASTROINTESTINAL: Abdomen soft, non-tender, nondistended. Hepatic and splenic margins not palpable. MUSCULOSKELETAL: Extremities without clubbing, cyanosis, or edema. No obvious deformities. NEUROLOGICAL: Awake and alert. Normal speech. PSYCHIATRIC: Appropriate mood and affect; insight and judgment normal. Laboratory Laboratory Tests Test 11/05/17 18:40 11/06/17 05:41 11/06/17 10:56 Nasal Screen MRSA (PCR) MRSA NOT DETECTED White Blood Count 8.1 Red Blood Count 2.26 Hemoglobin 6.8 Hematocrit 20.2 Mean Corpuscular Volume 89.2 Mean Corpuscular Hemoglobin 29.8 Mean Corpuscular Hemoglobin Concent 33.4 Red Cell Distribution Width 14.5 Platelet Count 282 Mean Platelet Volume 6.6 Neutrophils (%) (Auto) 80.8 Lymphocytes (%) (Auto) 6.4 Monocytes (%) (Auto) 8.7 Eosinophils (%) (Auto) 3.3 Basophils (%) (Auto) 0.8 Neutrophils # (Auto) 6.5 Lymphocytes # (Auto) 0.5 Monocytes # (Auto) 0.7 Eosinophils # (Auto) 0.3 Basophils # (Auto) 0.1 CBC Comment AUTO DIFF Differential Comment AUTO DIFF CONFIRMED Prothrombin Time 15.5 Prothromb Time International Ratio 1.5 Blood Urea Nitrogen 41 Creatinine 2.27 Random Glucose 90 Total Protein 7.9 Albumin 2.4 Calcium Level 9.0 Phosphorus Level 3.6 Magnesium Level 1.4 Alkaline Phosphatase 114 Aspartate Amino Transf (AST/SGOT) 15 Alanine Aminotransferase (ALT/SGPT) 21 Total Bilirubin 0.2 Sodium Level 138 Potassium Level 5.7 Chloride Level 110 Carbon Dioxide Level 19.3 Anion Gap 9 Estimat Glomerular Filtration Rate 29 Lactic Acid Level 0.6 Ferritin 2108 Total Creatine Kinase 52 Free Thyroxine 1.09 Free Triiodothyronine (T3) pg/dL 1.66 Thyroid Stimulating Hormone 3rd Gen 1.590 Random Cortisol 23.9 Date/Time Source Procedure Growth Status 11/06/17 10:03 Wound Other Gram Stain - Final Resulted 11/06/17 10:03 Wound Other Wound Culture Pending Resulted (Norma Mc) Result Diagram: 11/06/17 0541 11/06/17 0541 Imaging Last Impressions Chest X-Ray 11/06/17 0000 Signed Impressions: Service Date/Time: October 03:55 - CONCLUSION: No acute cardiopulmonary abnormality is identified. Zhou Renteria MD (Norma Mc) Assessment and Plan Problem List: (1) Acute renal insufficiency ICD Codes: N28.9 - Disorder of kidney and ureter, unspecified Plan: Renal insufficiency likely related to prerenal state given reported diarrhea at home and inadequate fluid intake. Noted that he has been on Bactrim at home which can cause a rise in SCr as well as serum potassium levels. Continue on IVF. Will check serology given underlying potential CKD, hypoalbuminemia, proteinuria. Check renal US to assess renal parenchyma and r/o underlying obstructive uropathy. (Mentions he has nocturia x5 almost nightly). He has been counselled about home NSAID use which he says he has not been on since May 2017. Medications should be adjusted for the patient's renal insufficiency. Avoid nephrotoxic agents such as iodinated contrast dyes and NSAIDs. Avoid gadolinium with eGFR <30. (2) Anemia ICD Codes: D64.9 - Anemia, unspecified Plan: Acute on chronic. Repeat CBC with Fe panel. Check SPEP, SIFE, UIFE, and K/L ratio. (3) Hyperkalemia ICD Codes: E87.5 - Hyperkalemia Status: Acute Plan: Potentially related to recent Bactrim use, but may have underlying RTA. He is improving with Bicarb drip. Place on low K+ diet. Renin/Yehuda pending Advised it would be prudent to avoid Bactrim in the future as Trimethoprim can elicit hyperkalemia. (4) Metabolic acidosis ICD Codes: E87.2 - Acidosis Plan: Improved with bicarb drip. Review of labs [facility] show this appears to be new. 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 Will defer this to CC. (Norma Mc) Assessment and Plan The exam, history, and the medical decision-making described in the above note were completed with the assistance of the PA-C. I reviewed and agree with the findings presented. I attest that I had a [id number] encounter with the patient on the same day, and personally performed and documented my assessment and findings in the medical record. (Nate Guallpa MD) Norma Mc Nov 06, 2017 17:41 Nate Guallpa MD Nov 07, 2017 15:15
[2017-11-06 18:04] LABS: HEMATOCRIT 24.2 % (39.0-51.0); HEMOGLOBIN 7.9 GM/DL (13.0-17.0); MEAN CELL VOLUME 91.5 FL (80.0-100.0); MEAN CORPUSCULAR HGB CONC 32.8 % (32.0-36.0); MEAN PLATELET VOLUME 8.9 FL (7.0-11.0); PLATELET COUNT 238 TH/MM3 (150-450); RED BLOOD COUNT 2.64 MIL/MM3 (4.50-5.90); RED CELL DISTRIBUTION WIDTH 15.1 % (11.6-17.2); WHITE BLOOD COUNT 9.2 TH/MM3 (4.0-11.0)
[2017-11-06] MEDS: GABAPENTIN 300 MG CAP PO SCH (21:19)
[2017-11-06] MEDS: FAMOTIDINE 20 MG TAB PO SCH (21:20)
--- NOTE | 2017-11-06 21:47 | EKG ---
Date Performed: 11/05/2017 Time Performed: 13:07:19 PTAGE: 67 years EKG: Sinus rhythm NORMAL ECG NO PREVIOUS TRACING DOCTOR: Tobias Jimenez Interpretating Date/Time 11/06/2017 21:45:39
[2017-11-07] VITALS (13 sets, daily range): BP systolic 105–158; BP diastolic 56–85; PULSE 84–98; RESP 15–22; TEMP 97.7–99.4; O2SAT 54–100
[2017-11-07] MEDS: CHLORHEXIDINE GLUCONATE 2 % 1 PACK (2 CLOTHS) TOP SCH (04:00)
[2017-11-07 07:04] LABS: HEMATOCRIT 22.6 % (39.0-51.0); HEMOGLOBIN 7.6 GM/DL (13.0-17.0); MEAN CELL VOLUME 88.3 FL (80.0-100.0); MEAN CORPUSCULAR HEMOGLOBIN 29.7 PG (27.0-34.0); MEAN CORPUSCULAR HGB CONC 33.6 % (32.0-36.0); MEAN PLATELET VOLUME 6.8 FL (7.0-11.0); PLATELET COUNT 283 TH/MM3 (150-450); RED BLOOD COUNT 2.56 MIL/MM3 (4.50-5.90); RED CELL DISTRIBUTION WIDTH 14.3 % (11.6-17.2); WHITE BLOOD COUNT 8.4 TH/MM3 (4.0-11.0)
[2017-11-07 07:18] LABS: COMPLEMENT C3 151 MG/DL (90-180); COMPLEMENT C4 28 MG/DL (10-40)
[2017-11-07 07:19] LABS: IRON (FE) 22 MCG/DL (65-175); PHOSPHORUS 2.9 MG/DL (2.5-4.9)
[2017-11-07 07:20] LABS: ALBUMIN 2.3 GM/DL (3.4-5.0); BICARBONATE 26.1 MEQ/L (21.0-32.0); CALCIUM 8.8 MG/DL (8.5-10.1); CREATININE 1.7 MG/DL (0.60-1.30); PHOSPHORUS 2.8 MG/DL (2.5-4.9)
[2017-11-07] MEDS: INSULIN ASPART SUPPLEMENTAL SCALE SQ SCH ×4 (07:37→19:27)
[2017-11-07] MEDS: SODIUM CHLORIDE 0.9% FLUSH 10 ML FLUSH IV FLUSH SCH ×2 (07:38→19:25)
[2017-11-07] MEDS: DOCUSATE SODIUM 50 MG/SENNA 8.6 MG TAB PO SCH ×2 (07:38→19:27)
[2017-11-07] MEDS: DRONEDARONE 400 MG TAB PO SCH ×2 (07:45→19:25)
[2017-11-07] MEDS: FERROUS SULFATE 325 MG (65 MG ELEMENTAL IRON) TAB PO SCH (07:45)
[2017-11-07] MEDS: METOPROLOL TARTRATE 25 MG TAB PO SCH ×2 (07:45→19:25)
[2017-11-07] MEDS: DABIGATRAN ETEXILATE 150 MG CAP PO SCH ×2 (07:47→19:25)
[2017-11-07 07:49] LABS: % SATURATION IRON PROFILE 15.6 % (20-50); FERRITIN 1925 NG/ML (26-388); IMMUNOGLOBULIN A 457 MG/DL (98-543); IMMUNOGLOBULIN G 1660 MG/DL (670-1650); IMMUNOGLOBULIN M 29 MG/DL (39-238); KAPPA LAMBDA RATIO 1.48 (1.57-3.93); KAPPA LIGHT CHAIN 442 MG/DL (170-370); LAMBDA LIGHT CHAIN 298 MG/DL (90-210); TOTAL IRON BINDING CAPACITY 141 MCG/DL (250-450)
--- NOTE | 2017-11-07 09:35 | RADRPT ---
EXAM DATE/TIME: 11/07/2017 08:08 [place] COMPARISON: No previous studies available for comparison. INDICATIONS : Increased labs. MEDICAL HISTORY : Afib. Chemotherapy. Right leg DVT. SURGICAL HISTORY : IVC filter. ENCOUNTER: Initial ACUITY: 1 day PAIN SCORE: 3/10 LOCATION: Bilateral flank MEASUREMENTS: RIGHT KIDNEY: 10.5 x 4.7 x 6.0 cm LEFT KIDNEY: 11.1 x 5.9 x 5.5 cm FINDINGS: RIGHT KIDNEY: Renal cortex is normal in thickness and echotexture. No hydronephrosis, stone, or mass. LEFT KIDNEY: Renal cortex is normal in thickness and echotexture. No hydronephrosis, stone, or mass. BLADDER: Within normal limits given the degree of distension. CONCLUSION: Unremarkable renal ultrasound Sylvester Frank MD FACR on November 07, 2017 at 9:33 Board Certified Radiologist. This report was verified electronically.
[2017-11-07] MEDS: SODIUM BICARBONATE 8.4% INJ 150 MEQ in DEXTROSE 5% IN WATE 1000ML INJ 850 ML IV SCH ×2 (11:01)
[2017-11-07] MEDS: ACETAMINOPHEN/HYDROcodone 325 MG/7.5 MG TAB PO PRN (15:22)
--- NOTE | 2017-11-07 15:51 | HHI.NPPN ---
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 fib, asthma, and prediabetes who presented to the ED on 11/05 with complaints of dyspnea x3 weeks. Does report an ED visit at [facility] at the end of Oct and was prescribed Tessalon Perles as well as Bactrim DS for groin ulceration that he completed just 2 days before. AT admission, he was found to be profoundly anemic with a severely elevated potassium of 7.2 that has improved with Kionex, D50, and insulin to 5.7. He states he has had several admissions and ED visits to [facility] in the past 6 months for hyperkalemia. Does not follow with PCP regularly. Denies any recent NSAID use, but does report daily Ibuprofen prior to his surgery in May 2017. Does not take potassium supplementation nor any ACEi or ARB. Admitting SCr at 3.08 that has improved to 2.27 at consult. K+ at 5.7, CO2 at 16 on admission improved to 19. Hgb dropped to 6.8 today from 7.9 on admission. Echo shows normal EF of 60-65% [facility] labs from 2016 show baseline SCr of 1.2-1.3. March 2017 his SCr was 2.58 and Aug 2017 was 1.7. K+ noted to be normal in 2016, was 5.4-5.6 in March 2017 and 6.09 Aug 2017 (this was outpatient lab and uncertain if he was aware of this or if addressed). Interval History Patient indicating that he is feeling better today. Review of Systems General Constitutional: Fatigue Objective Data Data 11/07/17 11/08/17 18:59 06:59 Intake Total 431 ml Balance 431 ml IV Total 431 ml Vital Signs Date Time Temp Pulse Resp B/P (MAP) Pulse Ox O2 Delivery O2 Flow Rate FiO2 11/07/17 14:00 96 11/07/17 12:00 98.0 84 18 129/65 (86) 54 11/07/17 12:00 84 11/07/17 10:00 86 11/07/17 08:00 93 11/07/17 08:00 97.7 93 17 158/85 (109) 83 11/07/17 06:00 96 11/07/17 04:00 86 11/07/17 04:00 97.7 86 22 144/73 (96) 100 11/07/17 02:00 86 11/07/17 00:00 97.8 84 15 145/79 (101) 11/07/17 00:00 84 11/06/17 22:00 83 11/06/17 20:00 98.1 91 11 113/77 (89) 100 11/06/17 20:00 91 11/06/17 18:00 79 11/06/17 16:00 78 11/06/17 16:00 97.7 78 11 120/62 (81) -: 11/07/17 0556 11/07/17 0556 Microbiology 11/07/17 Aerobic Blood Culture, Received Pending 11/07/17 Anaerobic Blood Culture, Received Pending 11/06/17 Aerobic Blood Culture - Preliminary, Resulted NO GROWTH IN 1 DAY 11/06/17 Anaerobic Blood Culture - Preliminary, Resulted NO GROWTH IN 1 DAY Physical Exam General Appearance: No Acute Distress, Comfortable, Obese Eyes Eye Exam: Sclera White Neck Neck Exam: Trachea Midline Pulmonary Resp Exam: Clear Bilaterally, Breath Sounds Equal, No Distress Cardiology CV Exam: Regular, Normal Sinus Rhythm, Good Perfusion Gastrointestinal/Abdomen GI Exam: Soft, Non-Tender Integumentary Skin Exam: Clear, Warm Neurologic Neuro Exam: Alert, Awake, Speech Clear Psychiatric Psych Exam: Appropriate Responses Assessment/Plan Problem List: (1) Acute renal insufficiency ICD Codes: N28.9 - Disorder of kidney and ureter, unspecified Plan: Renal insufficiency likely related to prerenal state given reported diarrhea at home and inadequate fluid intake. Noted that he has been on Bactrim at home which can cause a rise in SCr as well as serum potassium levels. Continue on IVF. Kidneys had normal appearance on renal ultrasound. Hepatitis C antibody test positive. Patient was counseled and has agreed to a PCR follow-up test. Denies any risk factors. Also noted to have an elevated [place]/lambda light chain ratio. Temperature increases and urine immunofixation pending. Remains to be determined what the patient's baseline creatinine level will be. He has been counselled about home NSAID use which he says he has not been on since May 2017. Medications should be adjusted for the patient's renal insufficiency. Avoid nephrotoxic agents such as iodinated contrast dyes and NSAIDs. Avoid gadolinium with eGFR <30. (2) Hyperkalemia ICD Codes: E87.5 - Hyperkalemia Status: Acute Plan: Potentially related to recent Bactrim use, but may have underlying RTA. He is improving with Bicarb drip. Place on low K+ diet. Renin/Yehuda pending Advised it would be prudent to avoid Bactrim in the future as Trimethoprim can elicit hyperkalemia. (3) Metabolic acidosis ICD Codes: E87.2 - Acidosis Plan: Resolved. Discontinue parental sodium bicarbonate and monitor. 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 Will defer this to CC. (6) Anemia ICD Codes: D64.9 - Anemia, unspecified Plan: Acute on chronic. (7) Vitamin D deficiency ICD Codes: E55.9 - Vitamin D deficiency, unspecified Status: Chronic Plan: Vitamin D3 5000 units daily started. Nate Guallpa MD Nov 07, 2017 15:51
[2017-11-07] MEDS: DEXT 5%-NACL 0.45% 1000 ML INJ 1,000 ML IV SCH (16:46)
--- NOTE | 2017-11-07 17:35 | HHI.CCPN ---
Subjective Remarks/Hospital Course This is a 67-year-old -[place] male that presented to the ED with complaints of dypnea for the last 3 weeks. The patient notes increasing shortness of breath for the last 3 weeks which is worse with exertion, alleviated at rest. He denies any chest pain or new cough. The patient has a recent history of testicular cancer, underwent removal of both testicles at the [facility] in May 2017. He was then diagnosed with a blood clot in the right lower extremity and was placed on Pradaxa. He reported that an IVC filter was placed. He also has a history of A. fib with RVR for which he takes Multaq. The patient apparently had recent blood work which revealed an elevated potassium level, however, no follow-up tests were performed. He now complains of increasing shortness of breath and had labs in triage which noted a potassium of 6.9 without any evidence of hemolysis. He denies any PRISCILLA inhibitors ARB use, denies any known history of kidney disorders. He does note mild dehiscence of the surgical wounds in the scrotum which have been evaluated by his physicians at the [facility]. Symptoms are moderate, worse with exertion, and slightly alleviated at rest. He denies any known history of congestive heart failure or cardiomyopathy.Repeat potassium level was 7.2. Patient received insulin and D50, calcium gluconate, 1 amp of sodium bicarbonate. Critical care medicine was consulted. Subjective: 11/06: No acute events overnight. Patient continues on sodium bicarbonate infusion , potassium level 5.7 . Hemoglobin noted 6.8 , be transfused 1 unit of packed red blood cells .Scrotal wound now draining, appears purulent.WBC down trended. Blood cultures 2, wound culture obtained. Wound care consult ordered. 11/07: No acute events overnight. Potassium level improving. Bicarbonate infusion discontinued. Patient is tolerating diet. Objective Vital Signs Date Time Temp Pulse Resp B/P (MAP) Pulse Ox O2 Delivery O2 Flow Rate FiO2 11/07/17 16:26 16 11/07/17 16:00 98.2 92 123/63 (83) 100 11/05/17 18:00 Room Air Intake and Output 11/07/17 11/07/17 11/08/17 08:00 16:00 00:00 Intake Total 815 ml 431 ml 333 ml Output Total 1100 ml Balance -285 ml 431 ml 333 ml Result Diagram: 11/07/17 0556 11/07/17 0556 Imaging Last Impressions Chest X-Ray 11/06/17 0000 Signed Impressions: Service Date/Time: October 03:55 - CONCLUSION: No acute cardiopulmonary abnormality is identified. Zhou Renteria MD Last Impressions Chest X-Ray 11/05/17 1228 Signed Impressions: Service Date/Time: Sunday, November 05, 2017 13:21 - CONCLUSION: 1. No acute cardiopulmonary findings. Jim Frank MD Objective Remarks GENERAL: This is a morbidly obese [place] male lying semirecumbent in stretcher in no apparent distress SKIN: Warm and dry. HEAD: Atraumatic. Normocephalic. EYES: Pupils equal and round. No scleral icterus. No injection or drainage. ENT: No nasal bleeding or discharge. Mucous membranes pink and moist. Uvula midline NECK: Trachea midline. No JVD. CARDIOVASCULAR: Normal rate, regular rhythm. RESPIRATORY: No accessory muscle use. Clear to auscultation. Breath sounds equal bilaterally. GASTROINTESTINAL: Abdomen soft, non-tender, nondistended. No guarding. MUSCULOSKELETAL: Extremities without clubbing, cyanosis, or edema. No obvious deformities. Venous stasis noted bilateral lower extremities, right lower extremity noted larger than left lower extremity.Purulent appearing drainage from scrotal surgical site/perineal area. NEUROLOGICAL: Awake and alert. RASS 0. No gross focal/sensory deficits. Follows commands in all 4 extremities. A/P Assessment and Plan Assessment Plan by systems: Neurologic: Chronic pain Neuropathy Neurochecks per ICU protocol Acetaminophen 650 mg every 6 hours for elevated temperature Continue home medication [place] 7-325 mg every 4 hours when necessary for pain 7- 10 Continue home medication Gabapentin 300 mg daily at bedtime F/U cortisol, aldosterone levels-pending Respiratory: History of PAULINA Maintain O2 sat greater than 92%. Patient currently on room air O2 saturation 99% 11/06-chest x-ray-lungs clear, no acute disease process Patient currently on Pradaxa 150 mg twice a day, will continue. History of DVT March or April 2017, after his scrotal surgery, and patient states placement of IVC filter Duo nebs every 4 hours when necessary for wheezing Chest x-rays and ABGs when clinically indicated Patient states he was diagnosed with PAULINA but has never used CPAP at home Cardiovascular: Chronic A. fib Continue home medication Multaq 100 mg BID, metoprolol 25 mg twice a day 11/06 echo-EF 60- 65%, No RWMA Renal Bladder scan every 4 hours if no urine output or greater than 400 cc straight cath -- Strict I/Os FEN/GI: Electrolyte derangement-hypokalemia and hyponatremia Metabolic acidosis-with normal anion gap-resolved Iron deficiency BORA Hyperkalemia-treated in ED with insulin and D50, calcium gluconate, albuterol, and 1 amp of sodium bicarbonate 50 mEq Sodium bicarbonate infusion 75 cc/hour discontinued 11/07 Nephrology following Monitor BMP F/U renin level-pending F/U hemoglobin [id number] Continue ferrous sulfate 325 mg/day -home medication Zofran for nausea Heme/ID: Leukocytosis-resolved Iron deficiency anemia Hepatitis C Monitor CBC F/U blood cultures, wound culture Obtain urine culture if indicated Ck scrotal area- previous dehiscence perineal area Endocrine: Diabetes mellitus Glucose monitoring per ICU protocol F/U thyroid panel, aldosterone -- SSI Prophylaxis: GI Prophylaxis Famotidine DVT Prophylaxis -- SCDs Pradaxa 150 mg BID Lines: Peripheral IVs. Right chest [id number] Dispo: Level 2. Plan transfer to [facility] floor when bed available. Plan transfer to [facility] in a.. Physician Cyndi Vines MD Nov 07, 2017 17:35
[2017-11-07] MEDS: FAMOTIDINE 20 MG TAB PO SCH (19:25)
[2017-11-07] MEDS: GABAPENTIN 300 MG CAP PO SCH (19:25)
[2017-11-07 20:09] LABS: ANA SCREEN NEG (NEG)
[2017-11-07 22:11] LABS: ALB/GLOB RATIO (SPE) 0.59 (1.39-2.23)
[2017-11-08] VITALS (7 sets, daily range): BP systolic 100–124; BP diastolic 52–72; PULSE 79–105; RESP 18–20; TEMP 98.1–99.4; O2SAT 98–100
[2017-11-08] MEDS: DEXT 5%-NACL 0.45% 1000 ML INJ 1,000 ML IV SCH ×2 (03:57→16:56)
[2017-11-08] MEDS: CHLORHEXIDINE GLUCONATE 2 % 1 PACK (2 CLOTHS) TOP SCH (04:00)
[2017-11-08 06:57] LABS: BICARBONATE 26.2 MEQ/L (21.0-32.0); CALCIUM 8.6 MG/DL (8.5-10.1); CREATININE 1.63 MG/DL (0.60-1.30); MAGNESIUM 1.3 MG/DL (1.5-2.5); PHOSPHORUS 3.2 MG/DL (2.5-4.9)
[2017-11-08 07:06] LABS: HEMATOCRIT 23.5 % (39.0-51.0); HEMOGLOBIN 7.9 GM/DL (13.0-17.0); MEAN CELL VOLUME 88.4 FL (80.0-100.0); MEAN CORPUSCULAR HEMOGLOBIN 29.7 PG (27.0-34.0); MEAN CORPUSCULAR HGB CONC 33.6 % (32.0-36.0); MEAN PLATELET VOLUME 7.2 FL (7.0-11.0); PLATELET COUNT 277 TH/MM3 (150-450); RED BLOOD COUNT 2.65 MIL/MM3 (4.50-5.90); RED CELL DISTRIBUTION WIDTH 14.4 % (11.6-17.2); WHITE BLOOD COUNT 8.5 TH/MM3 (4.0-11.0)
[2017-11-08] MEDS: INSULIN ASPART SUPPLEMENTAL SCALE SQ SCH ×4 (08:00→20:49)
[2017-11-08] MEDS: DOCUSATE SODIUM 50 MG/SENNA 8.6 MG TAB PO SCH ×2 (09:00→20:50)
[2017-11-08] MEDS: FERROUS SULFATE 325 MG (65 MG ELEMENTAL IRON) TAB PO SCH (10:15)
[2017-11-08] MEDS: METOPROLOL TARTRATE 25 MG TAB PO SCH ×2 (10:15→20:51)
[2017-11-08] MEDS: SODIUM CHLORIDE 0.9% FLUSH 10 ML FLUSH IV FLUSH SCH ×2 (10:16→20:51)
[2017-11-08] MEDS: ACETAMINOPHEN/HYDROcodone 325 MG/7.5 MG TAB PO PRN (10:17)
--- NOTE | 2017-11-08 10:36 | HHI.PR ---
Subjective Remarks RN denies any deterioration since last night. however pt did have some tachyarrhythmia suspicious for SVT on telemetry. pt says he feels palpitations. Objective Vital Signs Date Time Temp Pulse Resp B/P (MAP) Pulse Ox O2 Delivery O2 Flow Rate FiO2 11/08/17 08:00 98.3 101 18 100/65 (77) 98 11/08/17 04:09 91 11/08/17 04:00 98.1 88 20 107/52 (70) 98 11/08/17 00:00 92 11/08/17 00:00 99.4 98 20 105/56 (72) 100 11/07/17 23:08 99.4 98 20 105/56 (72) 100 11/07/17 22:00 88 11/07/17 20:00 87 11/07/17 20:00 98.8 87 17 130/70 (90) 100 11/07/17 18:00 88 11/07/17 16:26 16 11/07/17 16:00 98.2 92 17 123/63 (83) 100 11/07/17 16:00 92 11/07/17 14:00 96 11/07/17 12:00 98.0 84 18 129/65 (86) 54 11/07/17 12:00 84 I/O 11/07/17 11/07/17 11/07/17 11/08/17 11/08/17 11/08/17 07:00 15:00 23:00 07:00 15:00 23:00 Intake Total 1815 ml 431 ml 749 ml 884 ml Output Total 1100 ml 900 ml 125 ml Balance 715 ml 431 ml -151 ml 759 ml Intake Oral 240 ml 300 ml IV Total 1575 ml 431 ml 449 ml 884 ml Output Urine Total 1100 ml 900 ml 125 ml # Bowel Movements 0 0 Result Diagram: 11/08/17 0533 11/08/17 0533 Objective Remarks clear BS, unlabored breathing hr show tachycardic rate, regular rhythm healing scrotal wound no purulence or odor noted A/P Assessment and Plan Chronic pain Neuropathy Continue home medication [place] Continue home medication Gabapentin F/U cortisol, aldosterone levels-pending Chronic A. fib Continue home medication Multaq, Pradaxa, and , metoprolol consulting cards for suspected SVT vs AT 11/06 echo-EF 60- 65%, No RWMA iron def Continue ferrous sulfate 325 mg/day -home medication BORA improving with IVFs; nephro following Rhabdomyolysis -improving, continue IVFs Hepatitis C Chronic scrotal wound - previous dehiscence perineal area - F/U blood cultures, wound culture neg Peripheral IVs. Right chest [id number]-Vfrl Sergei Medley MD Nov 08, 2017 10:36
[2017-11-08] MEDS ORDERED: DILTIAZEM HCL 25 MG/5 ML VIAL IV ONE (11:30)
[2017-11-08] MEDS: DABIGATRAN ETEXILATE 150 MG CAP PO SCH ×2 (11:38→20:50)
[2017-11-08] MEDS: DRONEDARONE 400 MG TAB PO SCH ×2 (11:38→20:50)
--- NOTE | 2017-11-08 14:11 | HHI.NPPN ---
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 fib, asthma, and prediabetes who presented to the ED on 11/05 with complaints of dyspnea x3 weeks. Does report an ED visit at [facility] at the end of Oct and was prescribed Tessalon Perles as well as Bactrim DS for groin ulceration that he completed just 2 days before. AT admission, he was found to be profoundly anemic with a severely elevated potassium of 7.2 that has improved with Kionex, D50, and insulin to 5.7. He states he has had several admissions and ED visits to [facility] in the past 6 months for hyperkalemia. Does not follow with PCP regularly. Denies any recent NSAID use, but does report daily Ibuprofen prior to his surgery in May 2017. Does not take potassium supplementation nor any ACEi or ARB. Admitting SCr at 3.08 that has improved to 2.27 at consult. K+ at 5.7, CO2 at 16 on admission improved to 19. Hgb dropped to 6.8 today from 7.9 on admission. Echo shows normal EF of 60-65% [facility] labs from 2016 show baseline SCr of 1.2-1.3. March 2017 his SCr was 2.58 and Aug 2017 was 1.7. K+ noted to be normal in 2016, was 5.4-5.6 in March 2017 and 6.09 Aug 2017 (this was outpatient lab and uncertain if he was aware of this or if addressed). Interval History Patient indicating that he is feeling somewhat better today. No verbal complaints. Review of Systems General Constitutional: Fatigue Objective Data Data Vital Signs Date Time Temp Pulse Resp B/P (MAP) Pulse Ox O2 Delivery O2 Flow Rate FiO2 11/08/17 12:00 98.1 97 18 115/55 (75) 98 11/08/17 08:00 98.3 101 18 100/65 (77) 98 11/08/17 04:09 91 11/08/17 04:00 98.1 88 20 107/52 (70) 98 11/08/17 00:00 92 11/08/17 00:00 99.4 98 20 105/56 (72) 100 11/07/17 23:08 99.4 98 20 105/56 (72) 100 3/9/18 22:00 88 11/07/17 20:00 87 11/07/17 20:00 98.8 87 17 130/70 (90) 100 11/07/17 18:00 88 11/07/17 16:26 16 11/07/17 16:00 98.2 92 17 123/63 (83) 100 11/07/17 16:00 92 -: 11/08/17 0533 11/08/17 0533 Physical Exam General Appearance: No Acute Distress, Comfortable, Obese Eyes Eye Exam: Sclera White Neck Neck Exam: Trachea Midline Pulmonary Resp Exam: Clear Bilaterally, Breath Sounds Equal, No Distress Cardiology CV Exam: Regular, Normal Sinus Rhythm, Good Perfusion Gastrointestinal/Abdomen GI Exam: Soft, Non-Tender Integumentary Skin Exam: Clear, Warm Neurologic Neuro Exam: Alert, Awake, Speech Clear Psychiatric Psych Exam: Appropriate Responses Assessment/Plan Discussed Condition With: Patient Problem List: (1) Acute renal insufficiency ICD Codes: N28.9 - Disorder of kidney and ureter, unspecified Plan: Renal insufficiency likely related to prerenal state given reported diarrhea at home and inadequate fluid intake. Noted that he has been on Bactrim at home which can cause a rise in SCr as well as serum potassium levels..Kidneys had normal appearance on renal ultrasound. Hepatitis C antibody test positive. Patient was counseled and has agreed to a PCR follow-up test. Denies any risk factors. Also noted to have an elevated [place]/lambda light chain ratio. Temperature increases and urine immunofixation pending. Patient's creatinine level continues to improve. Acid-base status stable and hyperkalemia has resolved. Remains to be determined what the patient's baseline creatinine level will be. He has been counselled about home NSAID use which he says he has not been on since May 2017. Patient will be seen again most likely November 10, 2017 unless otherwise indicated. Medications should be adjusted for the patient's renal insufficiency. Avoid nephrotoxic agents such as iodinated contrast dyes and NSAIDs. Avoid gadolinium with eGFR <30. (2) Hyperkalemia ICD Codes: E87.5 - Hyperkalemia Status: Acute Plan: Potentially related to recent Bactrim use, but may have underlying RTA. He is improving with Bicarb drip. Place on low K+ diet. Renin/Yehuda pending Advised it would be prudent to avoid Bactrim in the future as Trimethoprim can elicit hyperkalemia. (3) Metabolic acidosis ICD Codes: E87.2 - Acidosis Plan: Resolved. Discontinue parental sodium bicarbonate and monitor. (4) Hypoalbuminemia ICD Codes: E88.09 - Other disorders of plasma-protein metabolism, not elsewhere classified Plan: Check UPCR CHeck Hep panel (5) Chronic anticoagulation ICD Codes: Z79.01 - [facility] (current) use of anticoagulants Plan: Literature recommends patients that are 65 years of age or older with GFR <30 should avoid Pradaxa d/t increased risk of bleeding. Will defer this to CC. (6) Hypomagnesemia ICD Codes: E83.42 - Hypomagnesemia Plan: Supplement with magnesium oxide. Check level Friday. (7) Anemia ICD Codes: D64.9 - Anemia, unspecified Plan: Acute on chronic. (8) Vitamin D deficiency ICD Codes: E55.9 - Vitamin D deficiency, unspecified Status: Chronic Plan: Vitamin D3 5000 units daily started. Nate Guallpa MD Nov 08, 2017 14:11
[2017-11-08] MEDS: MAGNESIUM OXIDE 400 MG TAB PO SCH (16:56)
--- NOTE | 2017-11-08 18:13 | MB ---
cc: Romel Joshua MD, Joshua A MD DATE OF CONSULT: 11/08/2017 REASON FOR CONSULTATION: SVT. HISTORY OF PRESENT ILLNESS: The patient is a pleasant 67-year-old gentleman who has a history of paroxysmal atrial fibrillation maintained on Pradaxa who has been in the hospital for shortness of breath and cough and has had multiple electrolyte derangements. Most of these have since recovered. The patient this morning went into a narrow complex supraventricular tachycardia at about 150 beats per minute which lasted about an hour and a half but then spontaneously resolved and thus I was asked to see the patient. Currently, the patient is feeling much now that he is out of his tachycardia. He has no chest pain, shortness of breath, lightheadedness or dizziness. PAST MEDICAL HISTORY: Atrial fibrillation on Multaq and Pradaxa (and typically seen at the [facility]), testicular cancer, DVT, IVC filter, morbid obesity. CURRENT MEDICATIONS: Pradaxa 150 mg b.i.d., iron, Pepcid 20 mg at nighttime, Multaq 400 mg b.i.d., Neurontin 300 mg at nighttime, Lopressor 25 mg b.i.d. ALLERGIES: NO KNOWN DRUG ALLERGIES PHYSICAL EXAMINATION: VITAL SIGNS: Afebrile. Pulse 101, respiratory rate 18, BP 100/65, satting 98% on room air. GENERAL: A pleasant morbidly obese gentleman in no distress. HEENT: No JVD. LUNGS: Clear to auscultation bilaterally. CARDIOVASCULAR: Mildly rapid but regular rate, no murmurs appreciated. ABDOMEN: Benign. EXTREMITIES: No edema. LABORATORY DATA: Sodium 139, potassium 4.7, chloride 106, bicarb 26.2, BUN 27, creatinine 1.63, glucose 95, INR is 1.5. White count 8.5, hematocrit 23.5 up from 20.2, platelets 277. CARDIOLOGY STUDIES: EKG shows sinus rhythm with no significant ST changes. Telemetry from this morning showed about an hour and a half of supraventricular tachycardia at about 150 beats per minute. IMPRESSION: 1. Supraventricular tachycardia. The patient had an hour and a half episode of supraventricular tachycardia which self resolved. He may have had episodes like this in the past. If they happen again then an ablation could be considered. For now, I would continue to monitor the metoprolol and his Multaq. 2. Paroxysmal atrial fibrillation. The patient is maintained on Pradaxa. He did come in with significant renal dysfunction, though this has improved significantly since he was in the hospital. It may be prudent to change him to something like Eliquis which has less renal involvement, but for now we will defer this to his [place] cardiologists who have been managing him thus far. Given the resolution of his supraventricular tachycardia, I will sign off and be available as needed but will be happy to assist with any further cardiac workup as needed. Thank you again for the opportunity to participate in this patient's care. MD TREY Sena//donn , 10:56 AM , 05:29 PM
[2017-11-08] MEDS: FAMOTIDINE 20 MG TAB PO SCH (20:50)
[2017-11-08] MEDS: GABAPENTIN 300 MG CAP PO SCH (20:50)
--- NOTE | 2017-11-08 23:44 | EKG ---
Date Performed: 11/08/2017 Time Performed: 10:25:44 PTAGE: 67 years EKG: Probable supraventricular tachycardia, possible AVRNT Lateral T wave changes are nonspecifi c Abnormal ECG Compared to prior tracing, now in SVT DOCTOR: Ermias Bassett Interpretating Date/Time 11/08/2017 23:42:42
[2017-11-09] VITALS: BP 116/66; PULSE 76; RESP 20; TEMP 98.1; O2SAT 99
[2017-11-09] MEDS: DEXT 5%-NACL 0.45% 1000 ML INJ 1,000 ML IV SCH (03:45)
[2017-11-09 04:00] VITALS: BP 149/83; PULSE 74; PULSE 77; RESP 20; TEMP 98.7; O2SAT 96
[2017-11-09] MEDS: CHLORHEXIDINE GLUCONATE 2 % 1 PACK (2 CLOTHS) TOP SCH (04:00)
[2017-11-09 08:00] VITALS: BP 132/73; PULSE 79; PULSE 84; RESP 17; TEMP 97.7; O2SAT 95
[2017-11-09] MEDS: INSULIN ASPART SUPPLEMENTAL SCALE SQ SCH ×2 (08:00→12:00)
[2017-11-09] MEDS: DOCUSATE SODIUM 50 MG/SENNA 8.6 MG TAB PO SCH (09:00)
[2017-11-09] MEDS: FERROUS SULFATE 325 MG (65 MG ELEMENTAL IRON) TAB PO SCH (09:02)
[2017-11-09] MEDS: MAGNESIUM OXIDE 400 MG TAB PO SCH (09:03)
[2017-11-09] MEDS: DABIGATRAN ETEXILATE 150 MG CAP PO SCH (09:03)
[2017-11-09] MEDS: METOPROLOL TARTRATE 25 MG TAB PO SCH (09:03)
[2017-11-09] MEDS: DRONEDARONE 400 MG TAB PO SCH (09:03)
[2017-11-09] MEDS: SODIUM CHLORIDE 0.9% FLUSH 10 ML FLUSH IV FLUSH SCH (09:04)
[2017-11-09] MEDS ORDERED: LIDOCAINE HCL 5% PATCH T-DERMAL SCH (09:30)
[2017-11-09] MEDS ORDERED: LIDOCAINE 2% JELLY 30 ML TUBE TOPICAL ONE (10:00)
[2017-11-09 12:00] VITALS: BP 96/54; PULSE 77; PULSE 78; RESP 17; TEMP 98.2; O2SAT 99
--- NOTE | 2017-11-09 13:46 | HHI.DCPOC ---
Discharge Care Plan Diagnosis: (1) SVT (supraventricular tachycardia) (2) Hypomagnesemia (3) Acute renal insufficiency (4) Hyperkalemia (5) Hepatitis C antibody positive in blood (6) Hepatitis C (7) Hepatitis C virus (8) Open wound of groin Additional Problems cleanse wound to scrotal and abdias penile areas with normal saline and pat dry. Apply topical Lidocaine 2% 2 mm thickness to wound beds and leave in place on wound for 5 minutes before loosely packing wounds with Maxorb Extra AG dressing , and Apply ultra sorb moisture management pads to groin and creases bilaterally. Change dressings and ultra sorb pads daily Goals to Promote Your Health * To prevent worsening of your condition and complications * To maintain your health at the optimal level Directions to Meet Your Goals Take your medications as prescribed Follow your dietary instruction Follow activity as directed Keep your appointments as scheduled Take your immunizations and boosters as scheduled If your symptoms worsen call your PCP, if no PCP go to Urgent Care Center or Emergency Room Smoking is Dangerous to Your Health. Avoid second hand smoke Call the 24-hour hour crisis hotline for domestic abuse at Sergei Medley MD Nov 09, 2017 13:46
[2017-11-09] MEDS ORDERED: PRAD150C PO (13:48)
[2017-11-09] MEDS ORDERED: TRAM50TA PO (14:24)
--- NOTE | 2017-11-09 14:25 | HHI.DS ---
Discharge Summary Admission Date Nov 05, 2017 at 16:54 Discharge Date: Nov 09, 2017 Admitting Diagnosis Hyperkalemia, acute kidney injury, exertional dyspnea (1) Acute hyperkalemia ICD Code: E87.5 - Hyperkalemia (2) Hepatitis C ICD Code: B19.20 - Unspecified viral hepatitis C without hepatic coma (3) Hepatitis C virus ICD Code: B19.20 - Unspecified viral hepatitis C without hepatic coma (4) Hepatitis C antibody positive in blood ICD Code: R76.8 - Other specified abnormal immunological findings in serum (5) SVT (supraventricular tachycardia) ICD Code: I47.1 - Supraventricular tachycardia (6) Vitamin D deficiency ICD Code: E55.9 - Vitamin D deficiency, unspecified Status: Chronic (7) Acute renal insufficiency ICD Code: N28.9 - Disorder of kidney and ureter, unspecified Procedures none Brief History - From Admission History of Present Illness HPI This is a 67-year-old -[place] male that presented to the ED with complaints of dypnea for the last 3 weeks. The patient notes increasing shortness of breath for the last 3 weeks which is worse with exertion, alleviated at rest. He denies any chest pain or new cough. The patient has a recent history of testicular cancer, underwent removal of both testicles at the [facility] in May 2017. He was then diagnosed with a blood clot in the right lower extremity and was placed on Pradaxa. He reported that an IVC filter was placed. He also has a history of A. fib with RVR for which he takes Multaq. The patient apparently had recent blood work which revealed an elevated potassium level, however, no follow-up tests were performed. He now complains of increasing shortness of breath and had labs in triage which noted a potassium of 6.9 without any evidence of hemolysis. He denies any PRISCILLA inhibitors ARB use, denies any known history of kidney disorders. He does note mild dehiscence of the surgical wounds in the scrotum which have been evaluated by his physicians at the [facility]. Symptoms are moderate, worse with exertion, and slightly alleviated at rest. He denies any known history of congestive heart failure or cardiomyopathy.Repeat potassium level was 7.2. Patient received insulin and D50, calcium gluconate, 1 amp of sodium bicarbonate. Critical care medicine was consulted. History PFSH Past Medical History Arthritis: Yes Asthma: Yes (1975) Heart Rhythm Problems: Yes (TACHYCARDIA) Cancer: Yes (SCROTAL SMALL CELL SQUAMOUS) Cardiovascular Problems: Yes Chemotherapy: Yes Diabetes: Yes (Pre DIABETIC) Diminished Hearing: No Endocrine: Yes Genitourinary: No Immune Disorder: No Musculoskeletal: Yes Neurologic: No Psychiatric: No Reproductive: Yes Respiratory: Yes Sleep Apnea: Yes (controlled) Past Surgical History Other Surgery: Yes (WOUND DEBRIDED BUTTOCKS, SWEAT GLANDS REMOVED) Social History Alcohol Use: Yes (RARELY) Tobacco Use: No Substance Use: No Allergies-Medications Allergies-Medications (Allergen,Severity, Reaction): Coded Allergies: No Known Allergies (Verified Adverse Reaction, Unknown, 11/05/17) Reported Meds & Prescriptions Reported Meds & Active Scripts Active Reported Tylenol (Acetaminophen) 325 Mg Tab 650 Mg PO Q6H PRN [place] (Hydrocodone-Acetaminophen) 7.5-325 mg Tab 1 Tab PO Q4H PRN Heparin Lock Flush For Flush (Heparin Sodium (Porcine) Lock Flush) 500 Unit/5 Ml (100 Unit/Ml) Inj 100 Units IV MONTHLY Normal Saline Flush (Sodium Chloride Flush) 0.9 % Inj 5 Ml IV MONTHLY Fish Oil + D3 (Fish Oil-Cholecalciferol) 1,200-1,000 Mg-Unit Cap 1 Cap PO DAILY Lidopril Topical (Lidocaine-Prilocaine Topical) 2.5-2.5 % Cream 1 Applic TOPICAL 1 HR PRIORACCESSPORT PRN Metoprolol Tartrate 25 Mg Tab 25 Mg PO BID Magnesium Oxide 400 Mg Tab 400 Mg PO TID Gabapentin 300 Mg Cap 300 Mg PO HS Ferrous Sulfate 325 Mg (65 Mg Iron) Tablet 325 Mg PO DAILY Oyster Shell Calcium/Vitamin D (Calcium Carbonate-Cholecalciferol) 250-125 Mg- Unit Tab 2 Tab PO BID Multaq (Dronedarone) 400 Mg Tab 400 Mg PO BID ROS Review of Systems Except as stated in HPI: all other systems reviewed are Neg General / Constitutional: No: Fever HEENT: No: Lightheadedness Cardiovascular: Positive: Dyspnea on exertion, No: Chest Pain or Discomfort Respiratory: Positive: Shortness of Breath Gastrointestinal: No: Nausea, Vomiting, Abdominal Pain Genitourinary: No: Decreased Urinary Output Musculoskeletal: Positive: Edema Neurologic: No: Dizziness CBC/BMP: 11/08/17 0533 11/08/17 0533 Significant Findings Laboratory Tests Test 11/06/17 17:05 11/07/17 05:56 11/08/17 05:33 Red Blood Count 2.64 MIL/MM3 (4.50-5.90) 2.56 MIL/MM3 (4.50-5.90) 2.65 MIL/MM3 (4.50-5.90) Hemoglobin 7.9 GM/DL (13.0-17.0) 7.6 GM/DL (13.0-17.0) 7.9 GM/DL (13.0-17.0) Hematocrit 24.2 % (39.0-51.0) 22.6 % (39.0-51.0) 23.5 % (39.0-51.0) Mean Platelet Volume 6.8 FL (7.0-11.0) Blood Urea Nitrogen 31 MG/DL (7-18) 27 MG/DL (7-18) Creatinine 1.70 MG/DL (0.60-1.30) 1.63 MG/DL (0.60-1.30) Albumin 2.3 GM/DL (3.4-5.0) Potassium Level 5.2 MEQ/L (3.5-5.1) Estimat Glomerular Filtration Rate 41 ML/MIN (>89) 43 ML/MIN (>89) Iron Level 22 MCG/DL (65-175) Total Iron Binding Capacity 141 MCG/DL (250-450) Percent Iron Saturation 15.6 % (20-50) Ferritin 1925 NG/ML (26-388) Total Protein 7.8 GM/DL (6.0-7.6) Albumin/Globulin Ratio 0.59 (1.39-2.23) Onbqd-3-Ckidtpcuy 0.42 GM/DL (0.11-0.29) Eklma-2-Knzfplhqv 1.12 GM/DL (0.22-1.00) Beta Globulins 1.07 GM/DL (0.53-1.03) Gamma Globulins 2.30 GM/DL (0.50-1.39) 25-Hydroxy Vitamin D Total 9.4 ng/ML (30-100) Immunoglobulin G Total 1660 MG/DL (670-1650) Immunoglobulin M 29 MG/DL (39-238) Immunoglobulin [place] Base/Lambda Ratio 1.48 (1.57-3.93) [place] Base Light Chain Analysis 442 MG/DL (170-370) Lambda Light Chain Analysis 298 MG/DL (90-210) Hepatitis C Antibody REACTIVE (NEGATIVE) Magnesium Level 1.3 MG/DL (1.5-2.5) Imaging Last Impressions Renal Ultrasound 11/07/17 0000 Signed Impressions: Service Date/Time: Tuesday, November 07, 2017 08:08 - CONCLUSION: Unremarkable renal ultrasound Sylvester Frank MD FACR Chest X-Ray 11/06/17 0000 Signed Impressions: Service Date/Time: October 03:55 - CONCLUSION: No acute cardiopulmonary abnormality is identified. Zhou Renteria MD PE at Discharge Heart sounds indicate regular rate rhythm, no murmurs Lungs are clear bilaterally, unchanged groin wound since admission Hospital Course Patient was initially admitted to the ICU. He had his potassium stabilized and his renal function improved with IV fluids. Nephrology has been consulted and ordered renal specific labs, was also found to have hepatitis C antibody as well as vitamin D deficiency. Patient was transferred to the medical floor where his renal function stabilized and his hyperkalemia had also resolved. He had a chronic groin wound for which wound care had been consulted and recommended specific dressing changes. Patient did develop some nonspecific SVT for which cardiology was consulted. Patient's SVT spontaneously resolved shortly after a Cardizem bolus. Patient was cleared for discharge from nephrology standpoint as well as cardiology. Patient was informed that upon discharge he should refrain from sexual activity until cleared by either PCP or plastic parts fabricator. He was also informed about following up with nephrology within 3-5 days upon discharge to monitor his renal function and electrolytes. He was also informed to follow up with urology within a week regarding his draining groin wound. Patient has met maximal benefit from hospitalization and is clinically stable for discharge. Pt Condition on Discharge: Stable Discharge Disposition: Discharge Home Discharge Time: > 30 minutes Discharge Instructions DIET: Follow Instructions for: Heart Healthy Diet, Renal Failure Diet Activities you can perform: Weight Bearing as Bobby Follow up Referrals: Gastroenterology - 2 Weeks Nephrology - 2-3 Days with Nate Guallpa MD PCP Follow-up Urology - 1 Week New Medications: Cholecalciferol (Vitamin D3) 5,000 Unit Cap 5000 UNITS PO DAILY for Nutritional Supplement, #30 CAP 0 Refills Dabigatran (Pradaxa) 150 Mg Cap 150 MG PO BID for Blood Clot Prevention, #60 CAP 0 Refills Tramadol (Tramadol) 50 Mg Tab 50 MG PO Q8H PRN for back pain, #60 TAB 0 Refills Continued Medications: Acetaminophen (Tylenol) 325 Mg Tab 650 MG PO Q6H PRN for MILD PAIN/ELEVATED TEMP, TAB 0 Refills Calcium Carbonate-Cholecalciferol (Oyster Shell Calcium/Vitamin D) 250-125 Mg- Unit Tab 2 TAB PO BID for Calcium Supplement, TAB 0 Refills Dronedarone (Multaq) 400 Mg Tab 400 MG PO BID for Regulate Heart Beat, TAB 0 Refills Ferrous Sulfate (Ferrous Sulfate) 325 Mg (65 Mg Iron) Tablet 325 MG PO DAILY for Nutritional Supplement, #30 TAB 0 Refills Fish Oil-Cholecalciferol (Fish Oil + D3) 1,200-1,000 Mg-Unit Cap 1 CAP PO DAILY for Nutritional Supplement, #30 CAP 0 Refills Gabapentin (Gabapentin) 300 Mg Cap 300 MG PO HS, #30 CAP 0 Refills Heparin Sodium (Porcine) Lock Flush (Heparin Lock Flush For Flush) 500 Unit/5 Ml (100 Unit/Ml) Inj 100 UNITS IV MONTHLY for Line Flush, INJECTION 0 Refills Hydrocodone-Acetaminophen ([place]) 7.5-325 mg Tab 1 TAB PO Q4H PRN for PAIN, TAB 0 Refills Lidocaine-Prilocaine Topical (Lidopril Topical) 2.5-2.5 % Cream 1 APPLIC TOPICAL 1 HR PRIORACCESSPORT PRN for [place] skin, #1 TUBE 0 Refills Magnesium Oxide (Magnesium Oxide) 400 Mg Tab 400 MG PO TID for Nutritional Supplement, TAB 0 Refills Metoprolol Tartrate (Metoprolol Tartrate) 25 Mg Tab 25 MG PO BID, #60 TAB 0 Refills Sodium Chloride Flush (Normal Saline Flush) 0.9 % Inj 5 ML IV MONTHLY Sergei Medley MD Nov 09, 2017 14:25
[2017-11-09] MEDS ORDERED: CHOL5000 PO (14:58)
[2017-11-09] MEDS ORDERED: REMOVE OLD LIDOCAINE PATCH T-DERMAL SCH (21:00)
[2017-11-10 23:52] LABS: KAPPA/LAMBDA FREE 1.36 (0.26-1.65)
[2017-11-13 07:50] LABS: HCV RNA PCR IU/ML LESS THAN 15 IU/mL (Not Detected)
== END 2017-11-09 16:15 | disposition home or self-care (01) | DRG 641 ==
LOC: NEPD 11:58 → NEDA 16:54 → HIMN 18:25 → N04A 11-07 23:17
PROVIDERS: ADMIT Hospitalist; ATTEND Hospitalist
PROC: 30233N1 Transfusion of Nonautologous Red Blood Cells into Peripheral Vein, Percutaneous Approach (ICD-10-PCS; principal; 2017-11-06)
DX: E87.5 Hyperkalemia (principal); E87.2 Acidosis; M62.82 Rhabdomyolysis; Z68.41 Body mass index [BMI] 40.0-44.9, adult; I47.1 Supraventricular tachycardia; I48.0 Paroxysmal atrial fibrillation; E55.9 Vitamin D deficiency, unspecified; G62.9 Polyneuropathy, unspecified; E88.09 Other disorders of plasma-protein metabolism, not elsewhere classified; N28.9 Disorder of kidney and ureter, unspecified; E66.01 Morbid (severe) obesity due to excess calories; R06.09 Other forms of dyspnea; B19.20 Unspecified viral hepatitis C without hepatic coma; T81.31XD Disruption of external operation (surgical) wound, not elsewhere classified, subsequent encounter; Z85.47 Personal history of malignant neoplasm of testis; Z90.79 Acquired absence of other genital organ(s); R73.03 Prediabetes; Z86.718 Personal history of other venous thrombosis and embolism; Z79.02 Long term (current) use of antithrombotics/antiplatelets; J45.909 Unspecified asthma, uncomplicated; G47.33 Obstructive sleep apnea (adult) (pediatric); D50.9 Iron deficiency anemia, unspecified; G89.29 Other chronic pain
CPT/HCPCS: 36430; 71045; 71046; 76775; 76937; 80048; 80053; 80069; 81001; 82088; 82306; 82533; 82550; 82728; 82784; 82948; 83036; 83540; 83550; 83605; 83735; 83880; 83883; 83970; 84100; 84165; 84244; 84439; 84443; 84481; 84484; 85025; 85027; 85610; 86038; 86160; 86334; 86803; 86850; 86900; 86901; 86920; 87040; 87070; 87205; 87340; 87522; 87641; 93005; 93306; 94664; J0610; J1815; J3475; J7030; J7070; J7613; P9016